=== PATIENT | female | born 1950 | race Caucasian/White ===

== ENCOUNTER 2016-09-27 20:00 | Emergency (ER) | payer OTHER ==
[2016-09-27 20:12] VITALS: RESP 18; TEMP 98.6
--- NOTE | 2016-09-27 20:21 | CPEKG ---
Heart Rate: 108 RR Interval: 556 P-R Interval: 168 QRSD Interval: 78 QT Interval: 336 QTC Interval: 451 P [place]: 51 QRS [place]: 43 T Wave [place]: 18 EKG Severity - ABNORMAL ECG - EKG Impression: SINUS TACHYCARDIA EKG Impression: PROBABLE POSTERIOR INFARCT Electronically Signed By: Scott Rodriguez 27-Sep-2016 20:51:48
--- NOTE | 2016-09-27 20:24 | EDPHY ---
H & P Stated Complaint: palpitations - Personal History Current Tetanus/Diphtheria Vaccine: Unsure Current Tetanus Diphtheria and Acellular Pertussis (TDAP): Unsure - Medical/Surgical History Hx Asthma: No Hx Chronic Respiratory Disease: No Hx Diabetes: No Hx Cardiac Disease: Yes Hx Renal Disease: No Hx Cirrhosis: No Hx Alcoholism: No Hx HIV/AIDS: No Hx Splenectomy or Spleen Trauma: No Other PMH: bicuspid aortic valve, aortic stenosis, migraines, - Social History Smoking Status: Never smoked <Scott Rodriguez - Last Filed: 09/27/16 21:09> Source: Patient Exam Limitations: No limitations <Anant Messer - Last Filed: 09/27/16 22:38> Time Seen by Provider: 09/27/16 20:23 Constitutional: Initial Vital Signs Temperature (C) 37 C 09/27/16 20:08 Heart Rate 114 H 09/27/16 20:08 Respiratory Rate 18 09/27/16 20:08 Blood Pressure 142/90 H 09/27/16 20:08 O2 Sat (%) 97 09/27/16 20:08 O2 Delivery Mode Room Air Allergies/Adverse Reactions: No Known Allergies Allergy (Unverified 09/27/16 20:06) Home Medications: Medication Instructions Recorded Aspirin EC [Aspirin EC 81 mg (*)] 81 mg PO DAILY 09/27/16 Estradiol [Estring] 1 each VG Q90D 09/27/16 Herbals/Supplements -Info Only 1 ea PO DAILY 09/27/16 Ibuprofen [Motrin (*)] 600 mg PO DAILY PRN 09/27/16 LISINOPRIL [LISINOPRIL] 2.5 mg PO HS 09/27/16 Naratriptan HCl [Naratriptan HCl] 1 mg PO DAILY PRN 09/27/16 Nortriptyline HCl [Nortriptyline 50 mg PO HS 09/27/16 HCl] Zolpidem Tartrate [Zolpidem 2.5 mg PO HS 09/27/16 Tartrate] valACYclovir [Valtrex (*)] 1,000 mg PO BID PRN 09/27/16 Medical Decision Making - Diagnostics Imaging: I viewed and interpreted images myself (normal) <Scott Rodriguez - Last Filed: 09/27/16 21:09> <Anant Messer - Last Filed: 09/27/16 22:38> - Diagnostics Imaging Results: Imaging Impressions Chest X-Ray 09/27/16 20:35 Impression: Chest negative for acute cardiopulmonary abnormality.. ED Course/Re-evaluation: CHIEF COMPLAINT: Heart palpitations HISTORY OF PRESENT ILLNESS: This patient is a 66 year old female who presents to the Emergency Department complaining of an acute 30-minute episode of heart palpitations with associated lightheadedness approximately one hour prior to arrival while resting outside. She reports two prior episodes of palpitations lasting for 1-2 minutes over the past few days as well as a remote history of intermittent palpitations, though she states that today's episode was far more intense. Today, she measured her heart rate using a pulse oximeter at home and states that she was tachycardic up to 180 at the time of the palpitations. She also reports an episode of chest pain this morning. She states that she awoke this morning the sensation of what felt like muscular discomfort to her left chest radiating to her left arm. She denies history of similar chest discomfort. No diaphoresis, nausea, or associated fatigue at that time. Upon arrival, she states that her palpitations have resolved. Denies dyspnea, chest pain, nausea, fatigue, weakness, or lightheadedness. She has a history of aortic stenosis and aortic aneurysm and is followed by Dr. Flaca Elizabeth, cardiology. REVIEW OF SYSTEMS: A 10 point review of systems was performed and is negative with the exception of the elements mentioned in the history of present illness. PHYSICAL EXAM: HR 114, BP 140/90, O2 Sat 97%, RR 18. Temp noted at 37C. General Appearance: Alert, well hydrated, appropriate, and non-toxic appearing. Head: Atraumatic without scalp tenderness or obvious injury Eyes: Pupils equal, round, reactive to light and accommodation, EOMI, no trauma , no injection. Ears: Clear bilaterally, no perforation, normal landmarks Nose: Atraumatic, no rhinorrhea, clear. Throat: There is no erythema or exudates, no lesions, normal tonsils, mucus membranes moist. Neck: Supple, 2+ carotid upstroke, nontender, no lymphadenopathy. Respiratory: No retractions, no distress, no wheezes, and no accessory muscle use. Lungs are clear to auscultation bilaterally. Cardiovascular: Regular rate and rhythm, no murmurs, rubs, or gallops. Bilateral carotid, radial, dorsalis pedis, and posterior tibial pulses intact. Good capillary refill all extremities. Gastrointestinal: Abdomen is soft, nontender, non-distended, no masses, no rebound, no guarding, no peritoneal signs. Musculoskeletal: Normal active ROM of all extremities, atraumatic. Neurological: Alert, appropriate, and interactive. The patient has normal DTRs and non-focal cranial nerves, motor, sensory, and cerebellar exam. Skin: No rashes, good turgor, no nodules on palpation. Past medical history: Aortic aneurysm, aortic stenosis, thalassemia minor. Past surgical history: Denies Family history: Non-contributory Social history: at bedside DIAGNOSTICS/PROCEDURES/CRITICAL CARE TIME: EKG INTERPRETATION: The 12 lead EKG was interpreted by myself: Sinus tachycardia, rate 108; lateral ST depressions in V4 and V5. See hard copy and/or "tracemaster" electronic copy for interpretation. No prior EKGs are available for comparison. DIFFERENTIAL DIAGNOSIS: The differential diagnosis for the patient's chest pain included but was not limited to myocardial ischemia, pulmonary embolus, chest wall pain, pleural inflammation, and pulmonary infectious causes. MEDICAL DECISION MAKING: This 66-year-old female presents following episodic heart palpitations, most significant tonight, and one episode of chest pain with left arm radiation this morning. At time of arrival, she states that her complaints have subsided. She is tachycardic at triage at 114. No additional acute findings on exam. Will proceed with EKG, chest x-ray, and labs, including troponin. She will be admitted regardless of results given her age and history. I discussed this plan with the patient who accepts this treatment plan. 324mg PO Aspirin administered. Chest x-ray reviewed by myself and is normal. 2109: Consultation with Dr. Krissy Troy, hospitalist, who accepts admission. (Scott Rodriguez) Differential Diagnosis: Differential diagnosis considered includes acute coronary syndrome, arrhythmia, congestive heart failure, metabolic abnormality, SVT, atrial fibrillation ( Anant Messer) Other Provider: The patient was turned over to me at shift change by Dr. Scott Rodriguez at 9:00 p.m. with a plan that she would be admitted to the hospital. I was informed by nursing staff the patient did not want to be admitted to the hospital and that she had not had a conversation regarding this disposition with the previous provider. I re-evaluated the patient and reviewed her workup in the ED. She presents to the ED after an episode of tachycardia or earlier today which resolved. The patient is noted to have some nonspecific ST segment depression on her EKG. The patient's initial troponin is normal. The patient does understand that we have not fully exclude acute coronary syndrome. She has been told the association between her EKG changes in the possibility of underlying heart disease. The patient would very much like to be discharged home and follow up with her blackjack dealer tomorrow morning. The patient does understand that she can return to the emergency department at any time should she reconsider her decision to leave against our advice. The patient is demonstrated that she is currently a competent decision maker. She is able to articulate the risks and benefits of declining admission to the hospital. ( Anant Messer) - Data Points Laboratory Results: Laboratory Results 09/27/16 20:30 09/27/16 20:30 09/27/16 09/27/16 20:30 20:30 WBC 6.42 10^3/uL 10^3/uL (3.80-9.50) RBC 5.49 10^6/uL H 10^6/uL (4.18-5.33) Hgb 10.8 g/dL L g/dL (12.6-16.3) Hct 34.5 % L % (38.0-47.0) MCV 62.8 fL L fL (81.5-99.8) MCH 19.7 pg L pg (27.9-34.1) MCHC 31.3 g/dL L g/dL (32.4-36.7) RDW 17.1 % H % (11.5-15.2) Plt Count 255 10^3/uL 10^3/uL (150-400) MPV 8.7 fL fL (8.7-11.7) Neut % (Auto) 69.5 % % (39.3-74.2) Lymph % (Auto) 23.2 % % (15.0-45.0) Dickey % (Auto) 5.0 % % (4.5-13.0) Eos % (Auto) 1.4 % % (0.6-7.6) Baso % (Auto) 0.3 % % (0.3-1.7) Nucleat RBC Rel Count 0.0 % % (0.0-0.2) Absolute Neuts (auto) 4.46 10^3/uL 10^3/uL (1.70-6.50) Absolute Lymphs (auto) 1.49 10^3/uL 10^3/uL (1.00-3.00) Absolute Monos (auto) 0.32 10^3/uL 10^3/uL (0.30-0.80) Absolute Eos (auto) 0.09 10^3/uL 10^3/uL (0.03-0.40) Absolute Basos (auto) 0.02 10^3/uL 10^3/uL (0.02-0.10) Absolute Nucleated RBC 0.00 10^3/uL 10^3/uL (0-0.01) Immature Gran % 0.6 % % (0.0-1.1) Immature Gran # 0.04 10^3/uL 10^3/uL (0.00-0.10) Platelet Estimate ADEQUATE (ADEQ) Polychromasia 1+ H Hypochromasia 2+ H Basophilic Stippling 1+ H Microcytic Cells 3+ H Tear Drop Cells 2+ H Elliptocytes 1+ H Schistocytes 1+ H Smear Review By Pending Sodium 141 mEq/L mEq/L (134-144) Potassium 3.9 mEq/L mEq/L (3.5-5.2) Chloride 104 mEq/L mEq/L (97-110) Carbon Dioxide 25 mEq/l mEq/l (22-31) Anion Gap 12 mEq/L mEq/L (8-16) BUN 12 mg/dL mg/dL (7-23) Creatinine 0.7 mg/dL mg/dL (0.6-1.0) Estimated GFR > 60 Glucose 98 mg/dL mg/dL (70-100) Calcium 9.7 mg/dL mg/dL (8.5-10.4) Magnesium 2.2 mg/dL mg/dL (1.6-2.3) Troponin I 0.017 ng/mL ng/mL (0-0.034) NT-Pro-B Natriuret Pep 220 pg/mL H pg/mL (0-125) TSH 0.277 uIU/mL L uIU/mL (0.465-4.680) Medications Given: Discontinued Medications Aspirin (Aspirin) 324 mg PO EDNOW ONE Stop: 09/27/16 20:36 Last Admin: 09/27/16 20:41 Dose: 324 mg Departure <JenniferScott Ballard - Last Filed: 09/27/16 21:09> <Messer,Anant Umberto - Last Filed: 09/27/16 22:38> - Departure Disposition: Home, Routine, Self-Care Clinical Impression: Palpitations Chest pain Qualifiers: Chest pain type: unspecified Qualified Code(s): R07.9 - Chest pain, unspecified Condition: Fair Instructions: Palpitations (ED) Additional Instructions: 1. We have offered you admission to the hospital for observation and further testing this evening in you have decline. Please be aware that we have not fully exclude the presence of possible underlying heart disease as a cause of your symptoms today. Please return to the ED immediately for any recurrent symptoms of palpitations, chest pain, difficulty breathing or other concerns. 2. Please follow up tomorrow with your blackjack dealer Dr. Elizabeth for further evaluation. Referrals: Katt Nieto MD [Primary Care Provider] - As per Instructions Flaca Elizabeth MD [Medical Doctor] - As per Instructions
[2016-09-27] MEDS ORDERED: ASPIRIN 81 MG CHEWABLE TAB PO ONE (20:35)
[2016-09-27] MEDS ORDERED: ASPIRIN 81 MG CHEWABLE TAB ONE (20:36)
[2016-09-27 20:42] LABS: % IMMATURE GRANULYOCYTES 0.6 % (0.0-1.1); ABSOLUTE IMMATURE GRANULOCYTES 0.04 10^3/uL (0.00-0.10); ADD DIFF? NO; ADD MORPH? YES; ADD SCAN? NO; ATYPICAL LYMPHOCYTE FLAG 0 (0-99); FRAGMENT RBC FLAG 40 (0-99); HEMATOCRIT 34.5 % (38.0-47.0); HEMOGLOBIN 10.8 g/dL (12.6-16.3); LEFT SHIFT FLG 0 (0-99); LIPEMIA HEMOLYSIS FLAG 80 (0-99); MEAN CELL HEMOGLOBIN 19.7 pg (27.9-34.1); MEAN CELL HEMOGLOBIN CONCENTR. 31.3 g/dL (32.4-36.7); MEAN PLATELET VOLUME 8.7 fL (8.7-11.7); PLATELET CLUMPS FLAG 10 (0-99); PLATELET COUNT 255 10^3/uL (150-400); RED BLOOD CELL COUNT 5.49 10^6/uL (4.18-5.33); RED CELL DISTRIBUTION WIDTH 17.1 % (11.5-15.2)
[2016-09-27 20:45] LABS: MEAN CELL VOLUME 62.8 fL (81.5-99.8)
[2016-09-27 20:58] LABS: ANION GAP 12 mEq/L (8-16); CALCIUM 9.7 mg/dL (8.5-10.4); CARBON DIOXIDE 25 mEq/l (22-31); CHLORIDE 104 mEq/L (97-110); CREATININE 0.7 mg/dL (0.6-1.0); GLOMERULAR FILTRATION RATE > 60; GLUCOSE 98 mg/dL (70-100); MAGNESIUM 2.2 mg/dL (1.6-2.3); POTASSIUM 3.9 mEq/L (3.5-5.2); SODIUM 141 mEq/L (134-144)
[2016-09-27 21:10] LABS: TROPONIN I 0.017 ng/mL (0-0.034)
[2016-09-27 21:12] LABS: ELLIPTOCYTES 1+; HYPOCHROMIA 2+; MICROCYTES 3+; PLATELET ESTIMATE ADEQUATE (ADEQ); POLYCHROMASIA 1+; SCHISTOCYTES 1+
[2016-09-27 23:02] VITALS: BP 130/95; PULSE 97; O2SAT 95
== END 2016-09-27 23:04 | disposition home or self-care (01) ==
LOC: UNDOADMOB 21:09
DX: R00.2 Palpitations (principal); R07.9 Chest pain, unspecified; Z79.82 Long term (current) use of aspirin

== ENCOUNTER → 2018-01-08 | Outpatient (CLI) | payer OTHER | LOC: FIMAGING 10:43 | PROVIDERS: ATTEND Internal Medicine | DX: Z12.31 Encounter for screening mammogram for malignant neoplasm of breast (principal) ==

== ENCOUNTER 2018-04-15 07:56 | Day surgery (SDC) | payer OTHER ==
[2018-04-15] MEDS ORDERED: DIAZEPAM 5 MG TAB PO ONE (07:58)
[2018-04-15] MEDS ORDERED: NS 1,000 ML IV ONE (07:58)
[2018-04-15] MEDS ORDERED: ASPIRIN EC 325 MG TAB PO ONE ×2 (07:58→08:09)
[2018-04-15] MEDS ORDERED: FAMOTIDINE 20 MG TAB PO ONE (07:58)
[2018-04-15] MEDS ORDERED: diphenhydrAMINE 25 MG CAP PO ONE ×2 (07:58→08:09)
[2018-04-15] MEDS ORDERED: DIAZEPAM 5 MG TAB ONE (08:09)
[2018-04-15] MEDS ORDERED: FAMOTIDINE 20 MG TAB ONE (08:09)
[2018-04-15] MEDS ORDERED: LIDOCAINE 1% 300 MG/30 ML SDV ONE (08:38)
[2018-04-15] MEDS ORDERED: MIDAZOLAM 2 MG/2 ML VIAL ONE ×2 (08:39→09:51)
[2018-04-15] MEDS ORDERED: IOPAMIDOL (ISOVUE-370) 150 ML BTL IV ONE (08:39)
[2018-04-15] MEDS ORDERED: fentaNYL 100 MCG/2 ML INJ ONE (08:39)
[2018-04-15 08:44] LABS: INR 1.05 (0.83-1.16); PROTIME(PATIENT) 13.9 SEC (12.0-15.0)
--- NOTE | 2018-04-15 09:00 | PDPROPOC ---
Sedation Plan of Care Sedation Plan of Care: vital signs stable, mental status noted, patient educated of risks, benefits, alternatives, patient can tolerate sedation Planned drugs: fentanyl, midazolam Mallampati Score: Class 2 Mallampati Reference Image: Patient passed 3-3-2 rule?: Yes
--- NOTE | 2018-04-15 09:00 | PDHPUP ---
History & Physical Update H&P update statement: This history and physical update is based on an assessment of the patient which was completed after admission or registration (within 24 hours), but prior to the surgery/procedure. H&P update: H&P reviewed & patient examined, no change in patient's condition since H&P completed
[2018-04-15 09:15] LABS: PLATELET COUNT 235 10^3/uL (150-400)
[2018-04-15] MEDS ORDERED: NITROGLYCERIN 0.4 MG BTL SL PRN (10:01)
[2018-04-15] MEDS ORDERED: ATROPINE SULFATE 1 MG/10 ML SYR IVP PRN (10:01)
[2018-04-15] MEDS ORDERED: HYDROCODONE/APAP 5/325 TAB PO PRN (10:01)
[2018-04-15] MEDS ORDERED: OXYCODONE/APAP 5/325 TAB PO PRN (10:01)
[2018-04-15] MEDS ORDERED: ONDANSETRON 4 MG/2 ML VIAL IVP PRN (10:01)
--- NOTE | 2018-04-15 10:01 | PDDXCAT ---
Diagnostic Cath Note - . Date: 04/15/18 Opthalmic Tech: Clara Indication: other (pre AVR) - Procedure Access: right groin Procedure: left heart catheterization, coronary angiography - Materials Left Heart Cath size: 6F Left Heart Cath materials: JL4.0, Francis's R - Findings-Left Heart Catheterization LM: long. Bifurcates into LAD and LCx. No CAD LAD: Reaches the apex. 3 small diagonals and one medium diagonal. No CAD LCX: No CAD. Single OM RCA: Dominant. Normal - Findings-Right Heart Catheterization AO: 122/69 Complications: none Estimated blood loss: <50ml Closure method: Angioseal Assessment: Normal coronary arteries. Aortic valve not crossed due to known severe Plan: Surgical AVR
--- NOTE | 2018-04-16 06:09 | CPEKG ---
Test Reason : OPEN Blood Pressure : / mmHG Vent. Rate : 058 BPM Atrial Rate : 058 BPM P-R Int : 138 ms QRS Dur : 083 ms QT Int : 435 ms P-R-T Axes : 043 050 016 degrees QTc Int : 428 ms Sinus rhythm Borderline ST depression inferolateral leads Confirmed by Malachi Goddard ([id number]) on 04/16/2018 6:08:42 AM Referred By: Confirmed By:Malachi Goddard
== END 2018-04-15 13:33 | disposition home or self-care (01) ==
LOC: FCATH 07:56
PROVIDERS: ATTEND Internal Medicine Cardiovascular Disease
DX: Z01.810 Encounter for preprocedural cardiovascular examination (principal); Q23.1 Congenital insufficiency of aortic valve; I08.0 Rheumatic disorders of both mitral and aortic valves; I71.2 Thoracic aortic aneurysm, without rupture; I47.1 Supraventricular tachycardia; R91.1 Solitary pulmonary nodule; G43.909 Migraine, unspecified, not intractable, without status migrainosus; D17.71 Benign lipomatous neoplasm of kidney; F32.9 Major depressive disorder, single episode, unspecified; Z86.010 Personal history of colon polyps; Z87.891 Personal history of nicotine dependence; Z88.0 Allergy status to penicillin
CPT/HCPCS: C1760; J1644; J2250; J3010; Q9967

== ENCOUNTER 2018-05-02 05:45 | Inpatient (IN) | payer OTHER ==
--- NOTE | 2018-05-01 15:07 | PDGENHP ---
History and Physical - Chief Complaint bicuspid aortic valve, , enlarged aorta - History of Present Illness 67 yo petite female with a BAV, 4.4 cm ascending aorta, and progressive associated with atypical chest pains and episodic near syncopal lightheadedness evaluated for AVR. Degree of ascending aortic dilatation deemed significant relative to her body size (cross sectional area to height 10cm/m2) and pre- emptive ascending aortic replacement recommended as well. No CAD or LVSD. No wt changes, orthopnea, or edema. Hx PSVT controlled on low dose Bystolic. Ablative surgery deferred as no documented AF. No personal hx HTN. Father at age 46 from sudden ; one niece known to have a BAV. Drinks a glass of wine w dinner most days of the week. History Information - Allergies/Home Medication List Allergies/Adverse Reactions: No Known Allergies Allergy (Verified 04/29/18 10:44) Home Medications: Aspirin EC [Aspirin EC 81 mg (*)] 81 mg PO DAILY 09/27/16 [Last Taken 04/29/18] Estradiol [Estring] 1 each VG Q90D 09/27/16 [Last Taken Unknown] Herbals/Supplements -Info Only 1 ea PO DAILY 09/27/16 [Last Taken 04/29/18] Ibuprofen [Motrin (*)] 600 mg PO DAILY PRN 09/27/16 [Last Taken 04/29/18] Naratriptan HCl [Naratriptan HCl] 1 mg PO DAILY PRN 09/27/16 [Last Taken ] valACYclovir [Valtrex (*)] 2,000 mg PO BID PRN 09/27/16 [Last Taken 03/29/18] Acetaminophen [Tylenol ES 500 mg (*)] 1,000 mg PO DAILY PRN 04/08/18 [Last Taken Unknown] Amoxicillin Trihydrate [Amoxicillin] 2,000 mg PO AD 04/08/18 [Last Taken ] Calcium Carbonate [Oyster Shell Calcium 500 mg (*)] 500 mg PO DAILY 04/08/18 [ Last Taken 04/29/18] Cholecalciferol Vit D3 [Vitamin D3 2000 units tab (OTC)] 2,000 units PO DAILY [Last Taken 04/29/18] Cyanocobalamin [Vitamin B12 (*)] 5,000 mcg PO DAILY 04/08/18 [Last Taken ] Magnesium Oxide [Magnesium Oxide 400 mg (*)] 400 mg PO BID 04/08/18 [Last Taken 04/29/18] Nebivolol HCl [Bystolic] 1.25 mg PO DAILY 04/08/18 [Last Taken Unknown] Pantoprazole Sodium [Protonix 40mg (*)] 40 mg PO MWF 04/08/18 [Last Taken Unknown] Psyllium Husk (with Sugar) [Metamucil Packet] 1 each PO DAILY PRN 04/08/18 [ Last Taken Unknown] Vitamin B Complex [Vitamin B Complex (OTC)] 1 each PO DAILY 04/08/18 [Last Taken 04/29/18] Zolpidem Tartrate [Ambien 5MG (*)] 2.5 - 5 mg PO HS 04/08/18 [Last Taken Unknown ] I have personally reviewed and updated: family history, medical history, social history, surgical history - Past Medical History migraines (with aura), SVT (paroxysmal; intolerant to digoxin, diltiazem, and higher doses of Bystolic) Additional medical history: chronic anemia - thalassemia. anxiety with depression. insomnia. esophageal dysphagia. herpes simplex. menopause. incidental subcentimeter pulm nodules, f/u CT planned end of 2018 - Surgical History Reports: appendectomy Additional surgical history: foot surgery - Social History Smoking Status: Never smoked Alcohol Use: Other (regularly) Review of Systems Review of Systems: ROS: 10pt was reviewed & negative except for what was stated in HPI & below Physical Exam Physical Exam: Constitutional: no apparent distress, appears nourished Eyes: other (PER) Ears, Nose, Mouth, Throat: moist mucous membranes, hearing normal Cardiovascular: regular rate and rhythym, systolic murmur, other (no visible edema) Respiratory: no respiratory distress Gastrointestinal: soft, non-tender abdomen Skin: warm, normal color Musculoskeletal: other (symmetric tone) Psychiatric: interacting appropriately, anxious Lab Data & Imaging Review 05/02/18 06:50 Patient ABO/Rh A POSITIVE 04/29/18 09:10 Antibody Screen NEGATIVE 04/29/18 09:10 HgbA1c 5% Na 140, K 3.8, BUN 14, Cr 0.7, glc 78 CBC clotted and to be redrawn Imaging Review: 10/26/16 Cardionet: NSR with one 13 beat run of SVT 03/05/18 TTE: Nl BiV cavity size and systolic fx, LVEF 65%, no LVH, no LVDD, BAV , severe by SUZANNA 0.7, mild AI, nl sized atria, mildly thickened mitral leaflets w mild MR, mild to mod TR, RVSP 41. 03/20/18 CT chest: Max ascending aortic dilatation at level of PA, no arch or arch vessel involvement. Incidental subcentimeter pulm nodules, LLL and RUL 04/15/18 LHC: rt dominant henry system, no angiographic evidence of disease Assessment & Plan Assessment: BAV w symptomatic severe and mild AI Ascending aorta dilation Preserved LVEF Chronic anemia Plan: Tissue AVR Ascending aortic replacement with dacron interposition graft PRBC request if H/H < Consents per Dr Gtz
[2018-05-02] MEDS ORDERED: AMINOCAPROIC ACID 5 GM/20 ML VIAL IV ONE (06:00)
[2018-05-02] MEDS ORDERED: MANNITOL 25% 12.5 GM/50 ML VIAL IVP ONE (06:00)
[2018-05-02] MEDS ORDERED: INSULIN REGULAR HUMAN 100 UNIT in NS 100 ML IV ONE (06:00)
[2018-05-02] MEDS ORDERED: CARDIOPLEGIC SOLUTION 1,052.8 ML PF ONE (06:00)
[2018-05-02] MEDS ORDERED: PHENYLEPHRINE HCL 50 MG in NS 250 ML IV ONE (06:00)
[2018-05-02] MEDS ORDERED: CITRATE DEXTROSE SOLN 500 ML BAG MISC ONE (06:03)
[2018-05-02] MEDS ORDERED: ceFAZolin 2 GM/DEXTROSE 100 ML IV ONE (06:03)
[2018-05-02] MEDS ORDERED: LIDOCAINE 1% 2 ML INJ ID PRN (06:03)
[2018-05-02] MEDS ORDERED: LR 1,000 ML IV ONE (06:04)
[2018-05-02] MEDS ORDERED: CALCIUM CHLORIDE 1 GM/10 ML INJ ONE ×2 (06:33→06:35)
[2018-05-02] MEDS ORDERED: PROTAMINE SULFATE 50 MG/5 ML VIAL IVP ONE (06:33)
[2018-05-02] MEDS ORDERED: HEPARIN 10,000 UNIT/10 ML MDV (1,000 UNIT/ML) ONE ×2 (06:34→06:36)
[2018-05-02] MEDS ORDERED: NA BICARBONATE 50 MEQ/50 ML VIAL ONE (06:34)
[2018-05-02] MEDS ORDERED: AMINOCAPROIC ACID 5 GM/20 ML VIAL ONE ×2 (06:34→06:35)
[2018-05-02] MEDS ORDERED: niCARdipine/NACL/200 ML BAG IV ONE (06:34)
[2018-05-02] MEDS ORDERED: AMIODARONE HCL 150 MG/3 ML VIAL ONE ×2 (06:34→06:36)
[2018-05-02] MEDS ORDERED: DOPamine/DEXTROSE 400 MG/250 ML BAG IV ONE (06:34)
[2018-05-02] MEDS ORDERED: ADENOSINE 6 MG/2 ML VIAL ONE (06:34)
[2018-05-02] MEDS ORDERED: MILRINONE/DEXTROSE/100 ML BAG IV ONE (06:34)
[2018-05-02] MEDS ORDERED: NITROGLYCERIN/D5W 50 MG/250 ML BOTTLE IV ONE (06:35)
[2018-05-02] MEDS ORDERED: ALBUMIN 5% 250 ML BOTTLE IV ONE ×2 (06:35→10:35)
[2018-05-02] MEDS ORDERED: ceFAZolin 1 GM VIAL ONE (06:35)
[2018-05-02] MEDS ORDERED: SODIUM BICARBONATE 50 MEQ/50 ML SYR ONE (06:35)
[2018-05-02] MEDS ORDERED: MAGNESIUM SULFATE 1 GM/2 ML VIAL ONE (06:36)
[2018-05-02] MEDS ORDERED: CITRATE DEXTROSE SOLN 500 ML BAG ONE (06:36)
[2018-05-02] MEDS ORDERED: methylPREDNISolone SOD SUCC 1 GM/8 ML VIAL ONE (06:36)
[2018-05-02] MEDS ORDERED: LIDOCAINE 2% 100 MG/5 ML SYR ONE ×2 (06:36→07:20)
[2018-05-02] MEDS: MUPIROCIN 2% 22 GM OINT NS SCH ×3 (06:50→21:08)
[2018-05-02] MEDS ORDERED: MIDAZOLAM 2 MG/2 ML VIAL IVP ONE (06:52)
--- NOTE | 2018-05-02 07:03 | PDANEPAE ---
ANE History of Present Illness critical s/f AVR and ascending Ao repair/replace ANE Past Medical History - Cardiovascular History Hx Hypertension: No Hx Arrhythmias: No Hx Chest Pain: No Hx Coronary Artery / Peripheral Vascular Disease: Yes Hx CHF / Valvular Disease: Yes Hx Palpitations: No Cardiovascular History Comment: bicupsid aortic valve. aortic valve stenosis. ascending aortic aneurysm. paroxysmal svt. cath 04.15.18. followed by [facility] - Pulmonary History Hx COPD: No Hx Asthma/Reactive Airway Disease: No Hx Recent Upper Respiratory Infection: No Hx Oxygen in Use at Home: No Hx Sleep Apnea: No Sleep Apnea Screening Result - Last Documented: Negative Pulmonary History Comment: hx of pulm nodule - Neurologic History Hx Cerebrovascular Accident: No Hx Seizures: No Hx Dementia: No Neurologic History Comment: migraines with aura's. lower back pain - Endocrine History Hx Diabetes: No - Renal History Hx Renal Disorders: No - Liver History Hx Hepatic Disorders: No - Neurological & Psychiatric Hx Hx Neurological and Psychiatric Disorders: Yes Neurological / Psychiatric History Comment: hx of depression. anxiety r/t surgery - Cancer History Hx Cancer: No - Congenital Disorder History Hx Congenital Disorders: No - GI History Hx Gastrointestinal Disorders: Yes Gastrointestinal History Comment: reflux. constipation. hx of colonoscopies - Other Health History Other Health History: thallasemia minor. wears glasses. dental work a couple weeks ago. "thin skin" - Chronic Pain History Chronic Pain: Yes (migraines, lower back pain) - Surgical History Prior Surgeries: 04.15.18 heart cath with Ware. garcia. foot surgeries- bilaterally. colonoscopy. wisdom teeth removal ANE Review of Systems Review of Systems: - Exercise capacity METS (RN): 4 METS ANE Patient History - Allergies Allergies/Adverse Reactions: No Known Allergies Allergy (Verified 04/29/18 10:44) - Home Medications Home medications: home medication list seen and reviewed Home Medications: Aspirin EC [Aspirin EC 81 mg (*)] 81 mg PO DAILY 09/27/16 [Last Taken 04/29/18] Estradiol [Estring] 1 each VG Q90D 09/27/16 [Last Taken Unknown] Herbals/Supplements -Info Only 1 ea PO DAILY 09/27/16 [Last Taken 04/29/18] Ibuprofen [Motrin (*)] 600 mg PO DAILY PRN 09/27/16 [Last Taken 04/29/18] Naratriptan HCl [Naratriptan HCl] 1 mg PO DAILY PRN 09/27/16 [Last Taken ] valACYclovir [Valtrex (*)] 2,000 mg PO BID PRN 09/27/16 [Last Taken 03/29/18] Acetaminophen [Tylenol ES 500 mg (*)] 1,000 mg PO DAILY PRN 04/08/18 [Last Taken Unknown] Amoxicillin Trihydrate [Amoxicillin] 2,000 mg PO AD 04/08/18 [Last Taken ] Calcium Carbonate [Oyster Shell Calcium 500 mg (*)] 500 mg PO DAILY 04/08/18 [ Last Taken 04/29/18] Cholecalciferol Vit D3 [Vitamin D3 2000 units tab (OTC)] 2,000 units PO DAILY [Last Taken 04/29/18] Cyanocobalamin [Vitamin B12 (*)] 5,000 mcg PO DAILY 04/08/18 [Last Taken ] Magnesium Oxide [Magnesium Oxide 400 mg (*)] 400 mg PO BID 04/08/18 [Last Taken 04/29/18] Nebivolol HCl [Bystolic] 1.25 mg PO DAILY 04/08/18 [Last Taken Unknown] Pantoprazole Sodium [Protonix 40mg (*)] 40 mg PO MWF 04/08/18 [Last Taken Unknown] Psyllium Husk (with Sugar) [Metamucil Packet] 1 each PO DAILY PRN 04/08/18 [ Last Taken Unknown] Vitamin B Complex [Vitamin B Complex (OTC)] 1 each PO DAILY 04/08/18 [Last Taken 04/29/18] Zolpidem Tartrate [Ambien 5MG (*)] 2.5 - 5 mg PO HS 04/08/18 [Last Taken Unknown ] - NPO status NPO Status: no food or drink >8 hours NPO Since - Liquids (Date): 05/01/18 NPO Since - Liquids (Time): 22:00 NPO Since - Solids (Date): 05/01/18 NPO Since - Solids (Time): 20:45 - Anes Hx Anes Hx: no prior problems - Smoking Hx Smoking Status: Never smoked - Alcohol Use Alcohol Use: Other (regularly) - Family Anes Hx Family Anes Hx: none Family Hx Anesthesia Complications: none ANE Labs/Vital Signs - Labs Result Diagrams: 05/02/18 06:50 - Vital Signs Blood Pressure: 118/83 Heart Rate: 67 Respiratory Rate: 16 O2 Sat (%): 99 Height: 152 cm Weight: 48.1 kg ANE Physical Exam - Airway Neck exam: FROM Mallampati Score: Class 2 Mouth exam: normal dental/mouth exam - Pulmonary Pulmonary: no respiratory distress - Cardiovascular Cardiovascular: regular rate and rhythym - ASA Status ASA Status: III ANE Anesthesia Plan Anesthesia Plan: general endotracheal anesthesia Lines/Monitors: arterial line, central line (QL CVP and cordis/PA catheter), ELA
[2018-05-02] MEDS ORDERED: REMIFENTANIL HCL 1 MG VIAL ONE (07:19)
[2018-05-02] MEDS ORDERED: fentaNYL 250 MCG/5 ML INJ ONE (07:19)
[2018-05-02] MEDS ORDERED: ONDANSETRON 4 MG/2 ML VIAL ONE (07:19)
[2018-05-02] MEDS ORDERED: MIDAZOLAM 2 MG/2 ML VIAL ONE (07:19)
[2018-05-02] MEDS ORDERED: PROPOFOL/EMULSION 500 MG/50 ML BOTTLE IV ONE (07:19)
[2018-05-02] MEDS ORDERED: ROCURONIUM 100 MG/10 ML VIAL ONE (07:19)
[2018-05-02] MEDS ORDERED: DEXAMETHASONE 4 MG/ML VIAL ONE ×2 (07:19)
[2018-05-02] MEDS ORDERED: PHENYLEPHRINE HCL 100 MCG/ML SYR ONE (07:20)
[2018-05-02] MEDS ORDERED: LIDOCAINE HCL 160 MG/4 ML LTA KIT TP ONE (07:20)
[2018-05-02] MEDS ORDERED: ePHEDrine SULFATE 25 MG/5 ML SYR ONE (07:20)
[2018-05-02] MEDS ORDERED: DEXMEDETOMIDINE HCL 400 MCG in NS 100 ML IV SCH (07:30)
--- NOTE | 2018-05-02 11:23 | POSTOPPROG ---
Post Op Note Date of Operation: 05/02/18 Surgeon: Roe Gtz Assistant: Neda Alarcon PA-C Anesthesiologist: Rob Anesthesia: GET(General Endotracheal) Pre-op Diagnosis: BAV w severe and aneurysmal ascending aorta Post-op Diagnosis: same Procedure: AVR #23 Inspiris Resilia bioprosthesis, asc ao resection, endoloop lig NGHIA Inf/Abcess present in the surg proc area at time of surgery?: No EBL: n/a Drains: Other ([address], 24 Fr post mediastinal Julian)
[2018-05-02] MEDS ORDERED: ONDANSETRON DISINTEGRATING 4 MG TAB PO PRN (11:25)
[2018-05-02] MEDS ORDERED: METOCLOPRAMIDE 10 MG/2 ML VIAL IVP PRN (11:25)
[2018-05-02] MEDS ORDERED: LACTULOSE 20 GM/30 ML UDCUP PO PRN (11:25)
[2018-05-02] MEDS ORDERED: niCARdipine/NACL 200 ML IV PRN (11:25)
[2018-05-02] MEDS ORDERED: ONDANSETRON 4 MG/2 ML VIAL IVP PRN (11:25)
[2018-05-02] MEDS ORDERED: SODIUM CL NASAL 45 ML BTL EACHNARE PRN (11:25)
[2018-05-02] MEDS ORDERED: POLYETHYLENE GLYCOL 3350 17 GM PKT PO PRN (11:25)
[2018-05-02] MEDS ORDERED: fentaNYL 100 MCG/2 ML INJ IVP PRN (11:25)
[2018-05-02] MEDS ORDERED: PANTOPRAZOLE SODIUM 40 MG VIAL IVP ONE (11:25)
[2018-05-02] MEDS ORDERED: MEPERIDINE 25 MG/0.5 ML AMP IVP PRN (11:25)
[2018-05-02] MEDS ORDERED: D50W 25 GM/50 ML SYR IVP PRN (11:25)
[2018-05-02] MEDS ORDERED: CEPACOL LOZENGE PO PRN (11:25)
[2018-05-02] MEDS ORDERED: MAGNESIUM HYDROXIDE 30 ML UDCUP PO PRN (11:25)
[2018-05-02] MEDS ORDERED: INSULIN REGULAR HUMAN 100 UNIT in NS 100 ML IV SCH (11:30)
[2018-05-02] MEDS ORDERED: NS 1,000 ML IV SCH (11:30)
[2018-05-02] MEDS ORDERED: oxyCODONE IR 5 MG TAB PO PRN (11:34)
--- NOTE | 2018-05-02 12:13 | GOP ---
DATE OF OPERATION: 05/02/2018 SURGEON: Roe Gtz MD REWEAVER: PATTY Whiting PREOPERATIVE DIAGNOSIS: 1. Severe aortic stenosis. 2. Ascending aortic aneurysm. POSTOPERATIVE DIAGNOSIS: 1. Severe aortic stenosis. 2. Ascending aortic aneurysm. PROCEDURE PERFORMED: 1. Aortic valve replacement using a 23 mm Inspiris bioprosthetic valve. 2. Resection and primary repair, ascending aortic aneurysm. 3. Left atrial appendage occlusion. FINDINGS: The pericardial space was free. The aorta was soft and somewhat thin. The aneurysm was a s described above. The valve itself was bicuspid with fusion of the non and right cusps. It was hea vily calcified. INDICATIONS: The patient is a 67-year-old woman with some atypical lightheadedness. She underwent e chocardiography and was found have a bicuspid, severely stenotic aortic valve. Her ascending aorta w as approximately 4.5 cm and when indexed to her small body size, was considered to be significant and an indication for resection. DESCRIPTION OF PROCEDURE: Patient taken to the operating room, placed on operating table in supine p osition. After the induction of general anesthesia and single-lumen endotracheal tube intubation, th e patient was prepped and draped sterilely. A standard median sternotomy was performed and the patie nt was fully heparinized. She was cannulated with a Sarns 8.0 Soft-Flow aortic cannula as well as a dual-stage venous right atrial cannula. Cardiopulmonary bypass was instituted. Left atrial appendag e was occluded. Once the appendage had been snared twice, we then opened the aorta, resected the ane urysm. This was sent for histology. We then inspected the valve; findings are described above. The valve itself was resected. It was sized to a 23 mm Inspiris bioprosthetic valve. Sutures were then placed around the anulus with pledgets on the ventricular side. The valve was seated without diffic ulty. Woven Dacron was then used to reinforce proximally and distally, and the aorta was primarily r eanastomosed end to end using running 3-0 Prolene. Next, the cross-clamp was removed. Atrial and ve ntricular pacing wires were placed. Two mediastinal chest drains were also placed. Once off bypass, the post pump transesophageal echo shows preservation of left ventricular function and a normally fu nctioning bioprosthetic valve in the aortic position. The protamine was administered, and the patien t was decannulated. Atrial and ventricular pacing wires had been placed. Once the cannulation sites had been secured with Prolene suture and hemostasis had been achieved, the chest was then closed wit h #6 stainless steel wires. Subcutaneous tissue and skin were closed with running Vicryl suture. Th e patient tolerated the procedure well. /[id number]/MODL
[2018-05-02] MEDS: ASPIRIN EC 81 MG TAB PO SCH (12:28)
[2018-05-02] MEDS: KETOROLAC 15 MG/1 ML SDV IVP SCH ×3 (12:33→23:29)
[2018-05-02] MEDS: POTASSIUM Cl (KCl) 50 ML IV PRN ×4 (12:40→21:09)
[2018-05-02] MEDS: ALBUMIN 5% 250 ML IV PRN ×2 (12:55→13:35)
[2018-05-02] MEDS: ceFAZolin 2 GM/DEXTROSE 100 ML IV SCH ×2 (14:04→22:23)
--- NOTE | 2018-05-02 17:01 | GCON ---
PULMONARY/CRITICAL CARE CONSULTATION. DATE OF CONSULTATION: 05/02/2018 REFERRING PHYSICIAN: Roe Gtz MD REASON FOR REFERRAL: Evaluation and management of anemia and respiratory failure/vent management. HISTORY: The patient is a 67-year-old woman with a history of a bicuspid aortic valve and dilated as cending aorta, who had progressive aortic stenosis associated with chest pain and near syncopal light headedness. She was seen by Dr. Gtz, who recommended aortic valve replacement/repair. PAST MEDICAL HISTORY: 1. PSVT controlled on low-dose Bystolic. 2. Thalassemia minor. 3. Migraines. 4. Anxiety with depression. 5. Insomnia. 6. Herpes simplex. MEDICATIONS: At time of admission include aspirin, estradiol, ibuprofen, valacyclovir. ALLERGIES: None. SOCIAL HISTORY: The patient has never smoked. Alcohol, the patient drinks alcohol regularly, but no t to excess. FAMILY HISTORY: Positive for bicuspid aortic valve. REVIEW OF SYSTEMS: A 10-point review of systems adds nothing to the history of present illness. PHYSICAL EXAM: VITAL SIGNS: The patient is intubated and sedated. Blood pressure is 108/55 with a h eart rate of 80 with a pacemaker. She is afebrile. Oxygen saturations are 99%. HEENT: Normocephali c and atraumatic. No icterus. NECK: No JVD. Trachea is midline. CHEST: Clear to auscultation. C ARDIAC: Regular rate and rhythm without murmur. ABDOMEN: Soft, nontender. Bowel sounds are present . EXTREMITIES: No clubbing, cyanosis, or edema. LABORATORY: Hemoglobin is 7.8, down from 9.7 preoperatively. Her MCV is low at 62.2, platelet count is 216. A chest x-ray shows mild atelectasis on the left. Images reviewed by me. ASSESSMENT: 1. Status post aortic valve replacement with aortic root repair. The patient had an unremarkable in traoperative course. 2. Anemia. The patient has chronic microcytic anemia due to thalassemia minor. Her hemoglobin is a bit lower due to intraoperative blood loss. 3. Respiratory failure. The patient remains intubated postoperatively, but is stable on the ventila tor and with good oxygen saturations and end-tidal CO2 in the low 40s. RECOMMENDATIONS: 1. Follow hemoglobin. 2. Check glucose level. 3. Hold sedation and wean from ventilator as tolerated. Can extubate once she is able to breathe sp ontaneously. 4. Continue pacemaker until sitka rate increases enough to maintain adequate blood pressure. /[id number]/MODL
[2018-05-02] MEDS: ACETAMINOPHEN 325 MG TAB PO SCH ×2 (18:22→23:29)
[2018-05-03 04:23] LABS: PLATELET COUNT 108 10^3/uL (150-400)
[2018-05-03] MEDS: ceFAZolin 2 GM/DEXTROSE 100 ML IV SCH ×3 (05:11→21:12)
[2018-05-03] MEDS: KETOROLAC 15 MG/1 ML SDV IVP SCH ×4 (05:25→23:15)
[2018-05-03] MEDS: ACETAMINOPHEN 325 MG TAB PO SCH ×4 (05:26→23:14)
[2018-05-03] MEDS ORDERED: DOBUTamine/DEXTROSE 250 ML IV ONE (06:00)
[2018-05-03] MEDS ORDERED: PSYLLIUM METAMUCIL 1 PKT PO PRN (08:00)
--- NOTE | 2018-05-03 08:28 | SOAPPROG ---
SOAP Progress Note Assessment/Plan: POD#1 s/p AVR #23 Inspiris, resection and primary repair of ascending aortic aneurysm, left atrial appendage occlusion Post-op LLE, LUE weakness, likely post-op CVA Severe BAV stenosis with enlarged ascending aorta - No inotropes required post- op. Paced immediately post-op but now in own rhythm NSR 78-95 overnight. Hold antithrombotic therapy (ASA, Coumadin). When/if appropriate, plan for 8 weeks of Coumadin. Likely post-operative CVA - includes LLE, LUE weakness and loss of sensation. No apparent cognitive deficit, aphasia, dysarthrias, or facial droop. Plan to have Neurology involved with CT today. Patient has a history of migraines w aura that have been worse in the ICU. Acute blood loss anemia - 9.7/29.9 just prior to OHS. 10.5/33.8 mid March. Transfuse to keep H/H >10/30. Chronic anemia/thalassemia - acute on chronic, worsened by OHS. No history of blood transfusion per patient. Postoperative respiratory insufficiency -extubated yesterday, continue C&DB, IS. Paroxysmal SVT - start low-dose beta-dameon when appropriate. Subcentimeter pulmonary nodules LLL & RUL. F/u CT end of 2019. Plan: Transfuse 2 pRBCs re: acute on chronic anemia Consult Neurology re: post-op CVA, CT scan ordered Hold anticoagulation, ASA Dc swan, arterial line, diaz Keep chest tubes as o/p too high to pull Wrap & cap wires Subjective: Did not feel SCDs squeezing on LLE last night at shift change. Presumed to have post-op CVA involving LLE, LUE with both motor & sensation deficits. She has been having increasing migraines w aura as well. Objective: Vital Signs Temp Pulse Resp BP Pulse Ox 37.1 C 85 14 130/64 H 99 05/03/18 07:38 05/03/18 07:38 05/03/18 07:38 05/03/18 07:00 05/03/18 07:38 Laboratory Results 05/03/18 04:10 05/03/18 04:10 05/02/18 05/03/18 05/04/18 05:59 05:59 05:59 Intake Total 2222 Output Total 2875 Balance -653 CXR - reviewed, stable General: NAD, sitting upright HEENT: NCAT,CVL IJ, MMM Respiratory: nasal cannula oxygen 2 L, no wheezes, crackles Cardiac: NSR, no m/r/g, no edema GI: soft,nt, nd : diaz Incisions: sternum with dressing Chest tubes: 350 cc overnight, already 170 cc this AM Neurologic: A&Ox3, communication ability within normal limits, voice quality normal, articulation of speech normal, no evidence of aphasia, no facial droop, drifting to left while sitting in chair LLE: loss of sensation on the lateral aspect (per pt), 3/5 strength LUE:3/5 strength, shoulder shrug weaker on left RLE strength 5/5, no sensation deficit RUE: strength 5/5, no sensation deficit [employer]ic: R - strength 5/5, L - strength 3-4/5 ICD10 Worksheet Patient Problems: Problems Problem Status Onset Acute blood loss anemia Acute S/P aortic valve replacement with bioprosthetic valve Acute ~05/02/18 s/p ascending aortic resection Acute ~05/02/18 Aortic stenosis due to bicuspid aortic valve Chronic Ascending aorta dilation Chronic PSVT (paroxysmal supraventricular tachycardia) Chronic
--- NOTE | 2018-05-03 08:50 | PDMN ---
Medical Necessity Medical necessity: MCG: S290 aortic valve replacement or repair 5 days: OP : AVReplacement, resection and primary repair, aaa, L atrial appendage occlusion. ALBERT FOR CPT [id number] DONE IN PT
--- NOTE | 2018-05-03 09:42 | ASMTCMCOM ---
CM Note CM Note Notes: Patient is POD #1 AVR and repair of ascending aortic aneurysm. 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 Cgonitively intact. Neurology will consult today. Patient is normally independent and lives with her who is a PT. Therapies have been ordered. Case Management will follow for discharge planning. Current CM Discharge plan: TBD Date Signed: 05/03/2018 09:41 AM Electronically Signed By:Taylor Randall RN
[2018-05-03] MEDS ORDERED: METOPROLOL TARTRATE 25 MG TAB PO SCH (10:00)
[2018-05-03] MEDS: ASPIRIN EC 81 MG TAB PO SCH (11:10)
[2018-05-03] MEDS: PANTOPRAZOLE SODIUM 40 MG TAB PO SCH (11:17)
[2018-05-03] MEDS: MUPIROCIN 2% 22 GM OINT NS SCH ×2 (11:17→21:12)
--- NOTE | 2018-05-03 11:18 | ASMTCMCOM ---
CM Note CM Note Notes: PT has recommended inpatient rehab and in discussion with the patient's , they are interested. Sent a referral to [facility] inpatient rehab program. Patient's David states if their insurance does not cover the cost and patient needs SNF, they would like to see if they can get admit to [facility]. David's parents were both residents of [facility] and the patient knows the staff there. CM will follow. Date Signed: 05/03/2018 11:17 AM Electronically Signed By:Cary Wilcox LCSW
--- NOTE | 2018-05-03 13:35 | POSTANESTH ---
Post Anesthetic Evaluation Cardiovascular Status: Normal, Stable Respiratory Status: Normal, Stable Level of Consciousness/Mental Status: Can Participate in Eval Pain Control: Adequate, Prn Tx Ordered Nausea/Vomiting Control: Adequate, Prn Tx Ordered Complications Possibly Related to Anesthesia: None Noted (patient with post op CVA involving LYNSEY and LE extremity both sensory and motor. Per family it started 3-4 hours post op, but this is unclear.)
--- NOTE | 2018-05-03 13:36 | PDINTPN ---
Distribution Coordinator Progress Note Assessment/Plan: Assessment: S/P AVR/aortic root repair Left hemiparesis: CTH unremarkable except for cerebellar heterogeneity of uncertain significance. Occurred post-op ? embolic events vs migraine. Anemia: Acute on chronic (thalassemia minor). Plan: D/W neurology. CT angio head/neck now. Transfuse PRBCs. Goal SBP <140 per CTS. 40 min CC time addressing acute neurologic changes, ? CVA, coordinating care with CTS, neurology. 05/03/18 13:42 Subjective: Reports some migraine visual aura, increased over baseline Objective: Vital Signs Temp Pulse Resp BP Pulse Ox 37.2 C 82 19 136/80 H 100 05/03/18 12:00 05/03/18 12:00 05/03/18 12:00 05/03/18 12:00 05/03/18 12:00 Laboratory Results 05/03/18 04:10 05/03/18 04:10 05/02/18 05/03/18 05/04/18 05:59 05:59 05:59 Intake Total 2222 100 Output Total 2875 55 Balance -653 45 CTH: heterogeneity R>L cerebellar peduncles. Images reviewed by me. Physical Exam - Physical Exam General Appearance: alert, no apparent distress EENT: normal ENT inspection Neck: normal inspection Respiratory: lungs clear Cardiac/Chest: regular rate, rhythm, No edema Abdomen: normal bowel sounds, non-tender Skin: normal color, warm/dry Extremities: normal inspection Neuro/Psych: alert, normal mood/affect, motor weakness (left arm and leg) ICD10 Worksheet Patient Problems: Problems Problem Status Onset Acute blood loss anemia Acute S/P aortic valve replacement with bioprosthetic valve Acute ~05/02/18 s/p ascending aortic resection Acute ~05/02/18 Aortic stenosis due to bicuspid aortic valve Chronic Ascending aorta dilation Chronic PSVT (paroxysmal supraventricular tachycardia) Chronic
[2018-05-03] MEDS ORDERED: IOPAMIDOL (ISOVUE 370) 100 ML BTL IV ONE ×2 (15:52)
--- NOTE | 2018-05-03 16:59 | ASMTCMCOM ---
CM Note CM Note Notes: Received a vm from Sherry at [facility]. Sherry will initiate the insurance authorization with [facility] so that hopefully, if patient is appropriate on Sunday, will be able to d/c. Per last CM note, patient and randall would like [facility] as a back-up. Since typically does not accept Commercial Insurance plans, another plan may be warranted. CM will continue to follow. Plan: [facility] IPR? Date Signed: 05/03/2018 04:59 PM Electronically Signed By:Aide Persaud RN
--- NOTE | 2018-05-03 17:55 | NEUROPROG ---
Assessment: [id number] - Neurology Consult: - CC: Left arm/leg weakness - HPI: Pt with history of bicuspid aortic valve and dilated ascending aorta who had progressive aortic stenosis with chest pain and lightheadedness had aortic valve repair by Dr. Garcia on 05/02/18. After surgery pt was noted to have left arm and leg weakness concerning for stroke. Head CT on 05/03/18 showed no hemorrhage but did note abnl in cerebellum and recommended brain MRI. CTA head/ neck performed and head CTA unremarkable (neck CTA read still pending). Brain MRI scheduled for 05/04/18. I initially saw the patient on 05/04/18. Neurologic exam showed left arm and leg weakness. Pt possibly also had left sided neglect although difficult to determine. Pt also reported long-standing migraine with aura that have been very difficult to control (she sees an outpatient migraine expert to manage). She did report migraine auras were present. At this time her symptoms are most concerning for stroke so will obtain brain MRI. If no stroke seen then I would consider that she has weakness from an atypical migraine. - PMHx: PSVT, thalassemia minor, migraines, anxiety/depression, insomnia, herpes simplex - SHx: no tobacco FHx: bicuspid aortic valve - ROS: Pt denied acute fever, total vision loss, active severe chest pain, respiratory failure, total body severe rash, total bowel/bladder incontinence, psychosis, active seizures, or active bleeding - O: VS reviewed General: Alert Eyes: Fundoscopic exam not able to visualize optic disks CV: Heart RRR, no murmur, no carotid bruit Lungs: Clear to auscultation bilaterally, no rhonchi or rales Neuro: - Mental: . Oriented x person/place/date . concentration appears normal . speech fluency/comprehension normal . memory appears normal . fund of knowledge appear intact - Cranial Nerves: . II: PERRL, VFFTC . III/IV/: EOMI, no nystagmus, normal smooth pursuits, no Ptosis . V: facial sensation intact to LT . VII: face symmetric to eye closure and smile . VIII: hearing intact to conversation . IX/X: uvula raises symmetrically . XI: SCM 5/5 R strength, 0/5 in L . XII: tongue protrudes midline w/nl strength - Motor: . Tone: normal tone in all 4 extremity . Strength: right arm/leg normal strength, left arm/leg are weak but strength testing inconsistent, possibly due to patient neglect - Reflexes: B/L bic/BR/patella 06/03 - Sensory: all 4 extremity intact to light touch - Coord: no coord issues noted - Gait: deferred - Labs: 05/03/18- Na 138 - Rads: 05/03/18- Head CT: Subtle heterogeneity of the cerebellar peduncles, most prominent on the right. This may be artifact but would consider MRI evaluation. No bleed noted (I personally visualized the images on 05/03/18) 05/03/18- Head CTA: no significant problems noted 05/03/18- Neck CTA: pending read - Assessment: 1. Left sided weakness after cardiac surgery on 05/02/18: Will get brain MRI to further evaluate cause. - 2. Recent cardiac surgery on 05/02/18 - 3. History of refractory migraines: Sees migraine specialist in [place], [place] - Plan: - Brain MRI wo tomorrow - Get Neck CTA read - TTE tomorrow - Begin aspirin 325 mg qd for stroke prevention if OK with cardiac surgery - telemetry - blood pressure goal < 220/120 x 48 hours - PT/OT/Speech to determine any rehab needs Objective: Vital Signs Temp Pulse Resp BP Pulse Ox 37.2 C 85 18 140/85 H 95 05/03/18 12:00 05/03/18 17:00 05/03/18 17:00 05/03/18 17:00 05/03/18 17:00 Laboratory Results 05/03/18 04:10 05/03/18 04:10 05/02/18 05/03/18 05/04/18 05:59 05:59 05:59 Intake Total 2222 1210 Output Total 6293 355 Balance -653 855 Allergies/Adverse Reactions: No Known Allergies Allergy (Verified 04/29/18 10:44)
[2018-05-03] MEDS: ZOLPIDEM TARTRATE 5 MG TAB PO PRN (21:12)
[2018-05-03] MEDS: MAGNESIUM OXIDE 400 MG TAB PO SCH (21:12)
[2018-05-03] MEDS ORDERED: LORazepam 2 MG/ML INJ ONE (23:24)
[2018-05-03] MEDS ORDERED: LORazepam 2 MG/ML INJ IVP ONE (23:45)
[2018-05-03] MEDS ORDERED: levETIRAcetam 1000MG/NACL 100 ML IV ONE (23:45)
[2018-05-04] MEDS: ACETAMINOPHEN 325 MG TAB PO SCH ×4 (06:19→23:50)
[2018-05-04] MEDS: KETOROLAC 15 MG/1 ML SDV IVP SCH (06:36)
--- NOTE | 2018-05-04 08:03 | SOAPPROG ---
SOAP Progress Note Assessment/Plan: POD#2 s/p AVR #23 Inspiris, resection and primary repair of ascending aortic aneurysm, left atrial appendage occlusion Post-op LLE, LUE weakness, likely post-op CVA, now with x1 episode of grand mal seizure Severe BAV stenosis with enlarged ascending aorta - No inotropes required post- op. Paced immediately post-op but now NSR with occ PAC. A&V wires removed. Hold antithrombotic therapy (ASA, Coumadin). When/if appropriate, plan for 8 weeks of Coumadin. Chest tubes too high to pull. Likely post-operative CVA - includes LLE, LUE weakness and loss of sensation. No apparent cognitive deficit, aphasia, dysarthrias, or facial droop. Patient has a history of migraines w aura that have been worse in the ICU. Dr. Estevez saw patient yesterday. CTA head/neck negative. New-onset grand mal seizure treated with ativan & keppra. Repeat CT head negative. Hold BB to keep cerebral perfusion pressures elevated. Acute blood loss anemia with thrombocytopenia - 9.7/29.9 just prior to OHS. 10.5 /33.8 mid March. Transfused 2 units yesterday with appropriate response. Platelets trending down (213 pre-op, 82 today). Will check for HIT. Chronic anemia/thalassemia - acute on chronic, worsened by OHS. Postoperative respiratory insufficiency -extubated POD 0, continue C&DB, IS. On 2 L nasal cannula oxygen. Paroxysmal SVT - stable, start low-dose beta-dameon when/if appropriate. Favor keeping BP elevated for cerebral perfusion. Plan: Given patients low platelet count & active chest tube o/p - hold ASA Split chest tubes A&V wires removed today, ok for MRI for CVA w/u Check PF4 IVF @ 50 until VSS Subjective: New onset grand mal seizure around midnight. Treated with ativan and keppra. Repeat head ct negative. Somnolent/post-ictal this AM. Objective: Vital Signs Temp Pulse Resp BP Pulse Ox 37.3 C 79 21 H 105/67 95 05/04/18 04:00 05/04/18 07:00 05/04/18 07:00 05/04/18 07:00 05/04/18 07:00 Laboratory Results 05/04/18 03:42 05/04/18 03:42 05/03/18 05/04/18 05/05/18 05:59 05:59 05:59 Intake Total 2222 1410 Output Total 2875 975 Balance -653 435 General: NAD, in bed HEENT: NCAT,CVL IJ Respiratory: nasal cannula oxygen 2 L, no wheezes, crackles Cardiac: NSR, no m/r/g, no edema GI: soft,nt, nd Incisions: sternum C/D/I & stable Chest tubes: 220 cc overnight Neuro: somnolent, responds with pain (removal of A/V wires), nods appropriately when asked questions, no evidence of aphasia ICD10 Worksheet Patient Problems: Problems Problem Status Onset Acute blood loss anemia Acute S/P aortic valve replacement with bioprosthetic valve Acute ~05/02/18 s/p ascending aortic resection Acute ~05/02/18 Aortic stenosis due to bicuspid aortic valve Chronic Ascending aorta dilation Chronic PSVT (paroxysmal supraventricular tachycardia) Chronic
[2018-05-04] MEDS: levETIRAcetam 500MG/NACL 100 ML IV SCH ×2 (09:36→20:18)
[2018-05-04] MEDS: MUPIROCIN 2% 22 GM OINT NS SCH (09:37)
--- NOTE | 2018-05-04 10:38 | NEUROPROG ---
Assessment: [id number] - Neurology Consult: - CC: F/U for Left arm/leg weakness, possible seizure - Narrative Summary: Pt with history of bicuspid aortic valve and dilated ascending aorta who had progressive aortic stenosis with chest pain and lightheadedness had aortic valve repair by Dr. Garcia on 05/02/18. After surgery pt was noted to have left arm and leg weakness concerning for stroke. Head CT on 05/03/18 showed no hemorrhage but did note abnl in cerebellum and recommended brain MRI. 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 I initially saw the patient on 05/03/18. Neurologic exam showed left arm and leg weakness. Pt possibly also had left sided neglect although difficult to determine. Pt also reported long-standing migraine with aura that have been very difficult to control (she sees an outpatient migraine expert to manage). She did report migraine auras were present. At this time her symptoms are most concerning for stroke so will obtain brain MRI. If no stroke seen then I would consider that she has weakness from an atypical migraine. - HPI: F/U 05/04/18. Pt had a possible generalized seizure on the evening of 05/03/18. STAT head CT showed no acute changes. Pt placed on levetiracetam 500 mg bid for seizure prevention w/o any further seizures. Brain MRI and TTE pending. Left arm/leg weakness still present but improved. - PMHx: PSVT, thalassemia minor, migraines, anxiety/depression, insomnia, herpes simplex - SHx: no tobacco FHx: bicuspid aortic valve - ROS: Pt denied acute fever, total vision loss, active severe chest pain, respiratory failure, total body severe rash, total bowel/bladder incontinence, psychosis, active seizures, or active bleeding - Labs: 05/03/18- Na 138 - Rads: 05/03/18- Head CT: Subtle heterogeneity of the cerebellar peduncles, most prominent on the right. This may be artifact but would consider MRI evaluation. 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 Finding seems too dense for Dacron mesh or suture material and does not correlate with surgical anastomosis of the aortic graft. 2. Mild stenosis of the origin of the left common carotid artery. 3. Widely patent internal carotid arteries and vertebral arteries. No plaque, dissection, or occlusion. - Assessment: 1. Left sided weakness after cardiac surgery on 05/02/18: Will get brain MRI to further evaluate cause. - 2. Recent cardiac surgery on 05/02/18 - 3. History of refractory migraines: Sees migraine specialist in [place], [place] - 4. Possible generalized seizure on 05/03/18: Head CT showed no acute changes. Pt started on levetiracetam 500 mg bid. - Plan: - Begin levetiracetam (Keppra) 500 mg bid for seizure prevention - Brain MRI wo - TTE - Begin aspirin 325 mg qd for stroke prevention if OK with cardiac surgery - telemetry - blood pressure goal < 220/120 x 24 hours - PT/OT/Speech to determine any rehab needs Objective: Vital Signs Temp Pulse Resp BP Pulse Ox 37.4 C 80 21 H 115/73 91 L 05/04/18 08:00 05/04/18 10:00 05/04/18 10:00 05/04/18 10:00 05/04/18 10:00 Laboratory Results 05/04/18 03:42 05/03/18 05/04/18 05/05/18 05:59 05:59 05:59 Intake Total 2222 1410 Output Total 7840 975 Balance -653 435 Allergies/Adverse Reactions: No Known Allergies Allergy (Verified 04/29/18 10:44)
--- NOTE | 2018-05-04 11:01 | ECHO ---
[email or web address] [address] [address] Main: [phone] Fax: Transthoracic Echocardiogram Name: LATASHA BOWDEN MR#: [id number] Study Date: 05/04/2018 Study Time: 07:15 AM Date of : 1950 Age: 67 year(s) Height: 149.9 cm (59 in.) Weight: 48.08 kg (106 lb.) BSA: 1.41 m2 Gender: Female Examination: Echo Indication: Possible stroke following heart surgery/eval for cardiac thrombus, 23mm bioprosthetic/resection/repair ascending aorta Image Quality: Technically Difficult Contrast: Requested by: Madhav Estevez BP: 105 mmHg/67 mmHg Heart Rate: Rhythm: Indication: Possible stroke following heart surgery/eval for cardiac thrombus, 23mm bioprosthetic/resection/repair ascending aorta Procedure [employer] Leader: Gena Arriaza [facility] Reading Physician: Maycol Lawton MD Requesting Provider: Conclusions: Normal size left ventricle. Mild concentric LV hypertrophy. The ejection fraction is estimated to be 55-60 %. No regional wall motion abnormality. The aortic valve is a bioprosthesis. No prosthesis regurgitation. AV max PG is 12mmHG. AV mean PG is 6mmHG.. Mild tricuspid regurgitation is present. The aorta is normal. No pericardial effusion. No obvious source of embolism seen. Measurements: Chambers Valvular Assessment AV/MV Valvular Assessment TV/PV Normal Normal Normal Name Value Range Name Value Range Name Value Range Ao Marie (2D): 2.6 cm (1.4 cm-2.6 AV Vmax: 1.75 m/s (1 m/s-1.7 TR Vmax: 2.39 mm/s ( - ) cm) m/s) TR PGmax: 23 mmHg ( - ) IVSd (2D): 1.0 cm (0.6 cm-1.1 AV meanP mmHg ( - ) syst. PAP: 28 mmHg ( - ) cm) MV E Vmax: 0.89 m/s ( - ) LVDd (2D): 3.8 cm (3.9 cm-5.3 MV A Vmax: 0.54 m/s ( - ) cm) MV E/A: 1.65 ( - ) LVDs (2D): 2.8 cm (2.1 cm-4 cm) LVPWd (2D): 1.0 cm ( - ) LVEF (2D): 51 (>=54 %) EF Range: 55-60 % Patient: LATASHA BOWDEN Study Date: 05/04/2018 Page 1 of 2 07:15 AM Continued Measurements: Chambers Valvular Assessment AV/MV Valvular Assessment TV/PV Name Value Name Value Name Value LADs: 3.0 cm MV E' Septal: 0.07 m/s CVP (est.): 5 mmHg MV E/E' Septal: 13.70 MV E/E' Lateral: 16.70 Findings: Left Ventricle: Normal size left ventricle. Mild concentric LV hypertrophy. Normal global systolic LV function. The ejection fraction is estimated to be 55-60 %. No regional wall motion abnormality. Normal diastolic LV function. Right Ventricle: Normal size right ventricle. Left Atrium: The left atrium is normal in size. Right Atrium: The right atrium is normal in size. Mitral Valve: The mitral valve is normal in appearance and function. Trivial mitral valve regurgitation. Aortic Valve: The aortic valve is a bioprosthesis. No prosthesis regurgitation. AV max PG is 12mmHG. AV mean PG is 6mmHG.. Tricuspid Valve: The tricuspid valve is normal in appearance and function. Mild tricuspid regurgitation is present. The pulmonary artery pressure is normal. Pulmonic Valve: Pulmonary valve not well visualized. Aorta: The aorta is normal. Pericardium: No pericardial effusion. Left side pleural effusion. (No Signature Object) Patient: LATASHA BOWDEN Study Date: 05/04/2018 Page 2 of 2 07:15 AM [id number]
--- NOTE | 2018-05-04 12:00 | PDINTPN ---
Medical Record Administrator Progress Note Assessment/Plan: Assessment: S/P AVR/aortic root repair Left hemiparesis: CTH unremarkable except for cerebellar heterogeneity of uncertain significance. Occurred post-op ? embolic events vs migraine. Seizure: Generalized tonic clonic seizure 05/03/2018 p.m., quickly aborted with Ativan. No recurrence. Likely due to ischemic focus/infarct. Anemia: Acute on chronic (thalassemia minor). Hemoglobin up to 10 with transfusion Thrombocytopenia: Likely due to cardiopulmonary bypass, acute blood loss. A bit early for HIT, currently not getting any heparin products Plan: Brain MRI Continue Keppra Transfuse platelets Follow CBC Goal SBP <140 per CTS. PT/OT/speech therapy Increase activity as tolerated 05/04/18 12:05 Subjective: Feels a bit better this morning, able to walk in her room. Still feels sleepy/ lethargic. Objective: Vital Signs Temp Pulse Resp BP Pulse Ox 37.4 C 85 22 H 130/78 H 94 05/04/18 08:00 05/04/18 11:00 05/04/18 11:00 05/04/18 11:00 05/04/18 11:00 Laboratory Results 05/04/18 03:42 05/04/18 10:25 05/03/18 05/04/18 05/05/18 05:59 05:59 05:59 Intake Total 2222 1410 Output Total 2875 975 200 Balance -653 435 -200 CT head: No acute changes. Images reviewed by me. Physical Exam - Physical Exam General Appearance: No alert (Somnolent but arousable and able to answer questions) EENT: normal ENT inspection Neck: normal inspection Respiratory: lungs clear, normal breath sounds Cardiac/Chest: regular rate, rhythm, No edema Abdomen: normal bowel sounds, non-tender Skin: normal color, warm/dry Extremities: normal inspection Neuro/Psych: alert, motor weakness (Left citlali paresis) ICD10 Worksheet Patient Problems: Problems Problem Status Onset Acute blood loss anemia Acute S/P aortic valve replacement with bioprosthetic valve Acute ~05/02/18 s/p ascending aortic resection Acute ~05/02/18 Aortic stenosis due to bicuspid aortic valve Chronic Ascending aorta dilation Chronic PSVT (paroxysmal supraventricular tachycardia) Chronic
[2018-05-04] MEDS: CALCIUM CARBONATE 500 MG TAB PO SCH (13:54)
[2018-05-04] MEDS: CHOLECALCIFEROL VIT D3 2,000 UNITS TAB/CAP PO SCH (13:54)
[2018-05-04] MEDS: VITAMIN B COMPLEX 1 EA CAP/TAB PO SCH (13:55)
[2018-05-04] MEDS: MAGNESIUM OXIDE 400 MG TAB PO SCH ×2 (13:55→20:18)
[2018-05-04] MEDS: CYANO/VITAMIN B12 1000 MCG TAB PO SCH (13:55)
[2018-05-04] MEDS: SENNOSIDES/DOCUSATE SODIUM TAB PO SCH ×2 (13:55→20:17)
[2018-05-04] MEDS: traMADol 50 MG TAB PO PRN (17:55)
[2018-05-04] MEDS: ZOLPIDEM TARTRATE 5 MG TAB PO PRN (21:51)
[2018-05-05] MEDS: ACETAMINOPHEN 325 MG TAB PO SCH (05:41)
--- NOTE | 2018-05-05 07:51 | SOAPPROG ---
SOAP Progress Note Assessment/Plan: POD#3 s/p AVR #23 Inspiris, resection and primary repair of ascending aortic aneurysm, left atrial appendage occlusion Post-op CVA with LLE, LUE weakness and x1 episode of grand mal seizure Severe BAV stenosis with enlarged ascending aorta - No inotropes required post- op. Paced immediately post-op but now NSR with occ PAC. A&V wires removed. TTE with normal EF and no bioprosthetic regurgitation. Antithrombotic ppx w ASA 81 mg. Given high o/p and thrombocytopenia, repeat TTE sunday to r/o effusion. Plan for 8 weeks of Coumadin if no effusion. Post op CVA (acute mild right frontal cortical infarct on MRI) - Dr. Estevez from Neurology involved in care. Includes LLE, LUE weakness and loss of sensation. No apparent cognitive deficit, aphasia, dysarthrias, or facial droop. Patient has a history of migraines w aura that have been worse in the ICU. CTA head/ neck negative. New-onset grand mal seizure (05/03 at ~2300) treated with ativan & keppra. Repeat CT head negative. Now on daily Keppra with no recurrent episodes. Hold BB to keep cerebral perfusion pressures elevated. Strength improving. Neuro rec: ASA 325. Plan to start with 81 mg until TTE Sunday and platelets stabilize. Acute blood loss anemia with thrombocytopenia - 9.7/29.9 just prior to OHS. 10.5 /33.8 mid March. 2 units pRBC transfused 1/4. 2 platelets yesterday. PF4 sent yesterday but unlikely. Transfuse 1 unit pRBC today. Chronic anemia/thalassemia - acute on chronic, worsened by OHS. Postoperative respiratory insufficiency -extubated POD 0, continue C&DB, IS. Paroxysmal SVT - no occurrences, start low-dose beta-dameon when/if appropriate. Favor keeping BP elevated for cerebral perfusion. Plan: Remove chest tubes today Repeat CBC, CXR tomorrow Transfuse 1 pRBC today Repeat TTE Sunday Start with ASA 81 Transfer to PCU status Dispo - inpatient rehab Subjective: MRI yesterday confirms acute right frontal cortical infarct. Objective: Vital Signs Temp Pulse Resp BP Pulse Ox 36.8 C 75 15 108/69 98 05/05/18 04:00 05/05/18 06:00 05/05/18 06:00 05/05/18 04:00 05/05/18 06:00 Laboratory Results 05/05/18 05:30 05/04/18 10:25 05/04/18 05/05/18 05/06/18 05:59 05:59 05:59 Intake Total 1410 1440 Output Total 975 966 150 Balance 435 474 -150 General: NAD, in chair HEENT: NCAT,CVL IJ Respiratory: no audible wheezes, crackles Cardiac: NSR, no m/r/g, no edema GI: soft,nt, nd Incisions: sternum C/D/I & stable Chest tubes: <100 cc overnight Neuro: somnolent, nods appropriately when asked questions, no evidence of aphasia, strength improving ICD10 Worksheet Patient Problems: Problems Problem Status Onset Acute blood loss anemia Acute S/P aortic valve replacement with bioprosthetic valve Acute ~05/02/18 s/p ascending aortic resection Acute ~05/02/18 Aortic stenosis due to bicuspid aortic valve Chronic Ascending aorta dilation Chronic PSVT (paroxysmal supraventricular tachycardia) Chronic
[2018-05-05] MEDS: CYANO/VITAMIN B12 1000 MCG TAB PO SCH (07:59)
[2018-05-05] MEDS: VITAMIN B COMPLEX 1 EA CAP/TAB PO SCH (08:00)
[2018-05-05] MEDS: levETIRAcetam 500 MG TAB PO SCH ×2 (08:00→21:26)
[2018-05-05] MEDS: CALCIUM CARBONATE 500 MG TAB PO SCH (08:00)
[2018-05-05] MEDS: MAGNESIUM OXIDE 400 MG TAB PO SCH ×2 (08:00→21:26)
[2018-05-05] MEDS: SENNOSIDES/DOCUSATE SODIUM TAB PO SCH ×2 (08:00→21:26)
[2018-05-05] MEDS: CHOLECALCIFEROL VIT D3 2,000 UNITS TAB/CAP PO SCH (08:00)
[2018-05-05] MEDS ORDERED: BISACODYL 10 MG SUPP PR PRN (10:02)
[2018-05-05] MEDS: ACETAMINOPHEN 325 MG TAB PO PRN ×2 (12:04→17:59)
--- NOTE | 2018-05-05 14:25 | NEUROPROG ---
Assessment: [id number] - Neurology Consult: - CC: F/U for Left arm/leg weakness, possible seizure - Narrative Summary: Pt with history of bicuspid aortic valve and dilated ascending aorta who had progressive aortic stenosis with chest pain and lightheadedness had aortic valve repair by Dr. Garcia on 05/02/18. After surgery pt was noted to have left arm and leg weakness concerning for stroke. Head CT on 05/03/18 showed no hemorrhage but did note abnl in cerebellum and recommended brain MRI. 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 I initially saw the patient on 05/03/18. Neurologic exam showed left arm and leg weakness. Pt possibly also had left sided neglect although difficult to determine. Pt also reported long-standing migraine with aura that have been very difficult to control (she sees an outpatient migraine expert to manage). She did report migraine auras were present. At this time her symptoms are most concerning for stroke so will obtain brain MRI. If no stroke seen then I would consider that she has weakness from an atypical migraine. - F/U 05/04/18. Pt had a possible generalized seizure on the evening of 05/03/18. STAT head CT showed no acute changes. Pt placed on levetiracetam 500 mg bid for seizure prevention w/o any further seizures. Brain MRI and TTE pending. Left arm/leg weakness still present but improved. - HPI: F/U 05/05/18. TTE showed no cardiac thrombus. Brain MRI showed Mild acute right frontal cortical infarct. Stroke likely from recent cardiac surgery. Pt stable. - PMHx: PSVT, thalassemia minor, migraines, anxiety/depression, insomnia, herpes simplex - SHx: no tobacco FHx: bicuspid aortic valve - ROS: Pt denied acute fever, total vision loss, active severe chest pain, respiratory failure, total body severe rash, total bowel/bladder incontinence, psychosis, active seizures, or active bleeding - Labs: 05/03/18- Na 138 - Rads: 05/03/18- Head CT: Subtle heterogeneity of the cerebellar peduncles, most prominent on the right. This may be artifact but would consider MRI evaluation. 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 Finding seems too dense for Dacron mesh or suture material and does not correlate with surgical anastomosis of the aortic graft. 2. Mild stenosis of the origin of the left common carotid artery. 3. Widely patent internal carotid arteries and vertebral arteries. No plaque, dissection, or occlusion. 05/04/18- TTE: no cardiac thrombus reported 05/04/18- Brain MRI wo: Mild acute right frontal cortical infarct - Assessment: 1. Right frontal stroke causing Left sided weakness after cardiac surgery on 05/02: Brain MRI showed Mild acute right frontal cortical infarct. TTE and telemetry showed no stroke cause. CTA head/neck showed no vessel cause for stroke. Stroke likely from recent cardiac surgery. - 2. Recent cardiac surgery on 05/02/18 - 3. History of refractory migraines: Sees migraine specialist in [place], [place] - 4. Generalized seizure on 05/03/18: Head CT showed no acute changes but brain MRI showed right frontal stroke which is likely cause of seizure. Pt started on levetiracetam 500 mg bid. - Plan: - Continue levetiracetam (Keppra) 500 mg bid for seizure prevention - No driving and seizure precautions until seizure free for 90 days - Begin aspirin for stroke prevention if OK with cardiac surgery, OK to proceed to anticoagulation if cardiothoracic surgery feels that is needed for recent cardiac surgery - blood pressure goal < 140/90 - LDL goal < 70 (Lipid panel ordered), if < than 70 I recommend beginning statin - H1AC goal < 7.0 (H1AC ordered) - PT/OT/Speech to determine any rehab needs - Pt should f/u with her neurologist in [place], [place] after hospital discharge to determine length of Keppra dosing for seizure control - No further inpatient w/u needed, neurology will sign off - 35 min spent with patient, majority of time spent counseling on stroke and treatment plan Objective: Vital Signs Temp Pulse Resp BP Pulse Ox 37.0 C 74 18 124/67 H 97 05/05/18 12:00 05/05/18 12:00 05/05/18 12:00 05/05/18 12:00 05/05/18 12:00 Laboratory Results 05/05/18 05:30 05/04/18 10:25 05/04/18 05/05/18 05/06/18 05:59 05:59 05:59 Intake Total 1410 1440 Output Total 97 96 150 Balance 435 812 -637 Allergies/Adverse Reactions: No Known Allergies Allergy (Verified 04/29/18 10:44)
[2018-05-05] MEDS: traMADol 50 MG TAB PO PRN (15:14)
[2018-05-05] MEDS: ZOLPIDEM TARTRATE 5 MG TAB PO PRN (21:26)
--- NOTE | 2018-05-06 07:47 | SOAPPROG ---
SOAP Progress Note Assessment/Plan: POD#4: AVR #23 Inspiris, resection and primary repair of ascending aortic aneurysm, left atrial appendage occlusion Severe BAV stenosis with enlarged ascending aorta s/p AVR with bioprosthesis/ asc ao aneurysm repair - - Post-op TTE with normal EF and no bioprosthetic regurgitation - Continue ASA 81 mg for thromboprophylaxis. Plan is for repeat TTE Sunday to r /o pericardial effusion. Will decide on thromboprophylaxis with Coumadin pending TTE. Plan for 8 weeks of Coumadin if no effusion. - BB held for permissive HTN to allow for higher cerebral perfusion pressure Post op right frontal cortical infarct with subsequent seizure - LLE/LUE weakness with major improvement. - Mild residual left facial droop - Continue Keppra for seizure prophylaxis - plan for OP neurology mgmt. Will consider ASA 325 (neuro rec) following TTE. Acute on chronic post-op blood loss anemia with thrombocytopenia s/p PRBC/ platelet transfusions. - 1 additional unit of PRBC transfused yesterday with adequate response - Platelets rebounding, precautionary HIT pending h/o paroxysmal SVT - No occurrences - BB held as explained. DVT prophylaxis - SCDs only. Disposition - family opting for discharge home with OP cardiac rehab. Plan for late Sunday/Sunday. Subjective: Feels tired. L-side feels normal. Denies SOB. Objective: Vital Signs Temp Pulse Resp BP Pulse Ox 37.5 C 88 21 H 129/76 H 93 05/06/18 07:33 05/06/18 07:33 05/06/18 07:33 05/06/18 07:33 05/06/18 07:33 Laboratory Results 05/06/18 05:45 05/06/18 05:45 05/05/18 05/06/18 05/07/18 05:59 05:59 05:59 Intake Total 1440 750 Output Total 966 150 Balance 474 600 Physical Exam - Physical Exam General Appearance: WD/WN, alert, no apparent distress Neck: normal inspection Respiratory: No respiratory distress Cardiac/Chest: regular rate, rhythm Abdomen: non-tender, soft, No distended Skin: normal color, warm/dry Extremities: No pedal edema Neuro/Psych: alert, normal mood/affect, oriented x 3, facial droop (left, mild) ICD10 Worksheet Patient Problems: Problems Problem Status Onset Acute blood loss anemia Acute S/P aortic valve replacement with bioprosthetic valve Acute ~05/02/18 s/p ascending aortic resection Acute ~05/02/18 Aortic stenosis due to bicuspid aortic valve Chronic Ascending aorta dilation Chronic PSVT (paroxysmal supraventricular tachycardia) Chronic
[2018-05-06] MEDS ORDERED: POTASSIUM CL 20 MEQ TAB PO ONE ×2 (09:17→18:21)
[2018-05-06] MEDS ORDERED: LIDOCAINE 1% 5 ML SDV IF ONE (09:48)
[2018-05-06] MEDS: VITAMIN B COMPLEX 1 EA CAP/TAB PO SCH (09:51)
[2018-05-06] MEDS: MAGNESIUM OXIDE 400 MG TAB PO SCH ×2 (09:52→21:41)
[2018-05-06] MEDS: CHOLECALCIFEROL VIT D3 2,000 UNITS TAB/CAP PO SCH (09:52)
[2018-05-06] MEDS: levETIRAcetam 500 MG TAB PO SCH ×2 (09:52→21:41)
[2018-05-06] MEDS: ASPIRIN EC 81 MG TAB PO SCH (09:52)
[2018-05-06] MEDS: PANTOPRAZOLE SODIUM 40 MG TAB PO SCH (09:52)
[2018-05-06] MEDS: CALCIUM CARBONATE 500 MG TAB PO SCH (09:52)
[2018-05-06] MEDS: SENNOSIDES/DOCUSATE SODIUM TAB PO SCH ×2 (09:54→22:19)
[2018-05-06] MEDS: CYANO/VITAMIN B12 1000 MCG TAB PO SCH (10:15)
[2018-05-06] MEDS: ACETAMINOPHEN 325 MG TAB PO PRN ×2 (13:05→21:41)
[2018-05-06] MEDS ORDERED: LIDOCAINE 1% 300 MG/30 ML SDV ONE (13:54)
[2018-05-06 14:39] LABS: INR 1.11 (0.83-1.16); PROTIME(PATIENT) 14.5 SEC (12.0-15.0)
[2018-05-06] MEDS: DIPHENHYDRAMINE CREAM TP PRN ×2 (16:57→22:05)
[2018-05-06] MEDS ORDERED: ALPRAZolam 0.25 MG TAB PO ONE (20:15)
[2018-05-06] MEDS: ZOLPIDEM TARTRATE 5 MG TAB PO PRN (21:41)
[2018-05-07] MEDS: ACETAMINOPHEN 325 MG TAB PO PRN ×2 (05:44→13:31)
[2018-05-07 05:59] LABS: INR 1.15 (0.83-1.16); PROTIME(PATIENT) 14.9 SEC (12.0-15.0)
--- NOTE | 2018-05-07 08:39 | SOAPPROG ---
SOAP Progress Note Assessment/Plan: POD#5: AVR #23 Inspiris, resection and primary repair of ascending aortic aneurysm, left atrial appendage occlusion Severe BAV stenosis with enlarged ascending aorta s/p AVR with bioprosthesis/ asc ao aneurysm repair - - Post-op TTE with normal EF and no bioprosthetic regurgitation - Continue ASA 81 mg for thromboprophylaxis. Plan is for repeat TTE today to r/ o pericardial effusion. Will decide on thromboprophylaxis with Coumadin pending TTE. Plan for 8 weeks of Coumadin if no effusion. - BB held for permissive HTN to allow for higher cerebral perfusion pressure Post op right frontal cortical infarct with subsequent seizure - LLE/LUE weakness with major improvement. - Mild residual left facial droop - Continue Keppra for seizure prophylaxis - plan for OP neurology mgmt. Will consider ASA 325 (neuro rec) following TTE. Acute on chronic post-op blood loss anemia with thrombocytopenia s/p PRBC/ platelet transfusions. - Stable - HIT negative h/o paroxysmal SVT - No occurrences - BB held as explained. DVT prophylaxis - SCDs only Disposition - Plan for home today with services Subjective: Was anxious last night and Xanax helped. State LLE still feels tingly. Denies weakness. Objective: Vital Signs Temp Pulse Resp BP Pulse Ox 36.6 C 86 18 139/90 H 95 05/07/18 08:00 05/07/18 08:00 05/07/18 08:00 05/07/18 08:00 05/07/18 08:00 Laboratory Results 05/06/18 05:45 05/07/18 05:30 05/06/18 05/07/18 05/08/18 05:59 05:59 05:59 Intake Total 750 690 Output Total 150 1725 Balance 600 -1035 PT 14.9 SEC (12.0-15.0) 05/07/18 05:30 INR 1.15 (0.83-1.16) 05/07/18 05:30 Physical Exam - Physical Exam General Appearance: WD/WN, alert, no apparent distress EENT: No scleral icterus (R), No scleral icterus (L) Neck: normal inspection Respiratory: No respiratory distress Cardiac/Chest: regular rate, rhythm Abdomen: non-tender, soft, No distended Skin: normal color, warm/dry Extremities: No pedal edema Neuro/Psych: facial droop (mild, left) ICD10 Worksheet Patient Problems: Problems Problem Status Onset Acute blood loss anemia Acute S/P aortic valve replacement with bioprosthetic valve Acute ~05/02/18 s/p ascending aortic resection Acute ~05/02/18 Aortic stenosis due to bicuspid aortic valve Chronic Ascending aorta dilation Chronic PSVT (paroxysmal supraventricular tachycardia) Chronic
[2018-05-07] MEDS: CHOLECALCIFEROL VIT D3 2,000 UNITS TAB/CAP PO SCH (08:57)
[2018-05-07] MEDS: VITAMIN B COMPLEX 1 EA CAP/TAB PO SCH (08:57)
[2018-05-07] MEDS: CYANO/VITAMIN B12 1000 MCG TAB PO SCH (08:57)
[2018-05-07] MEDS: ASPIRIN EC 81 MG TAB PO SCH (08:57)
[2018-05-07] MEDS: CALCIUM CARBONATE 500 MG TAB PO SCH (08:57)
[2018-05-07] MEDS: levETIRAcetam 500 MG TAB PO SCH (08:57)
[2018-05-07] MEDS: MAGNESIUM OXIDE 400 MG TAB PO SCH (08:58)
[2018-05-07] MEDS: SENNOSIDES/DOCUSATE SODIUM TAB PO SCH (10:31)
--- NOTE | 2018-05-07 11:01 | ASMTCMCOM ---
CM Note CM Note Notes: CM discussed plan with MD and RN. CM met with pt, David, and sister who were in the room. Pt has been progressing medically and feels comfortable being discharged home with outpatient follow-up and Cardiac Rehab. Pt's is a physical therapist and says that he feels comforable helping pt after discharge. Pt reports she has multiple friends who are willing to provide meals during the healing time. No other CM needs identifed. Pt will discharge independently. Plan: Independent. Date Signed: 05/07/2018 11:00 AM Electronically Signed By:RICK Gallo
--- NOTE | 2018-05-07 11:38 | ECHO ---
[email or web address] [address] [address] Main: [phone] Fax: Transthoracic Echocardiogram Name: LATASHA BOWDEN MR#: [id number] Study Date: 05/07/2018 Study Time: 09:06 AM Date of : 1950 Age: 67 year(s) Height: 149.9 cm (59 in.) Weight: 48.53 kg (107 lb.) BSA: 1.41 m2 Gender: Female Examination: Echo Indication: Post AVR, R/O Effusion Image Quality: Contrast: Requested by: Yuval Salgado BP: 139 mmHg/90 mmHg Heart Rate: Rhythm: Normal sinus rhythm Indication: Post AVR, R/O Effusion Procedure Staff [employer]: Alok Ochoa RDCS Reading Physician: Flaca Elizabeth MD Requesting Provider: Conclusions: Normal size left ventricle. No LV hypertrophy. Normal global systolic LV function. EF is 61 %. No regional wall motion abnormality. Normal size right ventricle. Normal RV function. Trivial to mild mitral regurgitation. The aortic valve is a bioprosthesis. Normal functioning aortic valve prosthesis. Mild tricuspid regurgitation is present. The pulmonary artery pressure is normal. No pericardial effusion. There is a pleural effusion. Overall similar findings compared with 05/04/2018. Measurements: Chambers Valvular Assessment AV/MV Valvular Assessment TV/PV Normal Normal Normal Name Value Range Name Value Range Name Value Range Ao Marie (MM): 2.8 cm (2.2 cm-3.7 AV Vmax: 2.10 m/s (1 m/s-1.7 TR Vmax: 2.76 mm/s ( - ) cm) m/s) TR PGmax: 30 mmHg ( - ) IVSd (2D): 0.9 cm (0.6 cm-1.1 AV maxP mmHg ( - ) syst. PAP: 35 mmHg ( - ) cm) AV meanP mmHg ( - ) PV Vmax: 1.02 m/s (0.6 m/s-0.9 LVDd (2D): 4.2 cm (3.9 cm-5.3 LVOT Vmax: 0.92 m/s (0.7 m/s-1.1 m/s) cm) m/s) PV PGmax: 4 mmHg ( - ) LVDs (2D): 2.8 cm (2.1 cm-4 SUZANNA (Vmax): 1.2 cm2 ( - ) cm) SUZANNA (VTI): 1.2 cm ( - ) LVPWd (2D): 0.9 cm ( - ) MV E Vmax: 1.13 m/s ( - ) LVOTd 1.9 cm 1.9 cm mm MV A Vmax: 0.55 m/s ( - ) Patient: LATASHA BOWDEN Study Date: 05/07/2018 Page 1 of 2 09:06 AM LVEF (2D): 61 (>=54 %) MV E/A: 2.05 ( - ) Continued Measurements: Chambers Valvular Assessment AV/MV Valvular Assessment TV/PV Name Value Name Value Name Value LADs Lon.8 cm MV E' Septal: 0.08 m/s CVP (est.): 5 mmHg LA Area: 15.3 cm2 MV E/E' Septal: 14.70 LA Volume: 40 ml MV E/E' Lateral: 13.60 LA Volume Index: 28.4 ml/m2 Findings: Left Ventricle: Normal size left ventricle. No LV hypertrophy. Normal global systolic LV function. EF is 61 %. No regional wall motion abnormality. Normal diastolic LV function. Right Ventricle: Normal size right ventricle. Normal RV function. Left Atrium: The left atrium is normal in size. Right Atrium: The right atrium is mildly dilated. Mitral Valve: The mitral valve is normal in appearance and function. Trivial to mild mitral regurgitation. No mitral stenosis is present. Aortic Valve: The aortic valve is a bioprosthesis. Normal functioning aortic valve prosthesis. The prosthetic aortic valve is normal. No prosthesis stenosis. No prosthesis regurgitation. Tricuspid Valve: The tricuspid valve appears normal. Mild tricuspid regurgitation is present. The pulmonary artery pressure is normal. Pulmonic Valve: The pulmonic valve is normal in appearance and function. Aorta: The aorta is normal. Pericardium: No pericardial effusion. There is a pleural effusion. (No Signature Object) Patient: LATASHA BOWDEN Study Date: 05/07/2018 Page 2 of 2 09:06 AM [id number]
[2018-05-07 12:54] VITALS: BP 138/86
--- NOTE | 2018-05-07 14:09 | PDDCSUM ---
Discharge Summary Discharge Summary: ADMISSION DATE: 05/02/18 DISCHARGE DATE: 05/07/18 ADMISSION DIAGNOSES 1. Severe aortic stenosis 2. Ascending aortic aneurysm 3. Paroxysmal SVT 4. Chronic anemia DISCHARGE DIAGNOSES 1. Severe aortic stenosis 2. Ascending aortic aneurysm 3. Paroxysmal SVT 4. Acute chronic anemia with thrombocytopenia 5. Right frontal cortical infarct with subsequent seizure PROCEDURES 05/02/18 (Roe Randle): AVR with #23 Inspiris bioprosthetic valve, resection and primary repair of ascending aortic aneurysm, left atrial appendage occlusion HPI 67F with severe and ascending aortic aneurysm admitted for elective repair. HOSPITAL COURSE BY PROBLEM LIST 1. Severe aortic stenosis with ascending aortic aneurysm - stable s/p AVR/ aneurysm replacement. Coumadin with INR goal of 2-3 for 2 months for valve thromboprophylaxis. Beta-dameon held for permissive HTN to allow for higher cerebral perfusion pressure. Continue ASA 81 mg DAILY. 2. Paroxysmal SVT - no occurrences. Beta-dameon held as explained above. 3. Acute chronic anemia with thrombocytopenia - stable s/p 3U PRBCs and 2U platelets. 4. Right frontal cortical infarct with subsequent seizure - initial LLE/LUE weakness with resolution. Mild persistent left facial droop. Continue Keppra for seizure prophylaxis with plan for OP management with patient's established neurologist. CONDITION Good DISPOSITION Home, self-care PERTINENT DISCHARGE CLINICAL INFORMATION Vitals: 138/86, 83 SR, 92% on RA Exam: NAD, S1S2, No resp distress, ND, soft, NTP, LE without edema BL Labs: INR 1.15 ACTIVITY Pt was instructed on sternal precautions, activity limitations, and which problems to call [facility] with. Please see Discharge Plan in chart for specifics. DISCHARGE MEDICATIONS Continue: Valtrex PRN, ASA 81 mg DAILY, Estradiol Q90D, Vitamins/Supplements, Protonic 40 mg MWF, Amoxil 2000 mg AD, Ambien 2.5 mg QS New: Tylenol OTC PRN, Xanax 0.25 mg TID PRN, Keppra 500 mg BID, Coumadin 2.5 mg DAILY (INR goal 2-3 for 2 months), Ibuprofen 400 mg TID PRN Stop Naratriptan, Bystolic PENDING STUDIES/LABS 1. CXR prior to surgical follow-up 2. INR 05/10 at clinic FOLLOW-UP 1. Efrain Rivera, 05/14/18, 11:00 AM 2. Neurology, as directed
[2018-05-07] MEDS ORDERED: WARFARIN SODIUM 2.5 MG TAB PO SCH (16:00)
--- NOTE | 2018-05-07 16:01 | ASDISCHSUM ---
Discharge Information Plan Status:Home with No Needs Medically Cleared to Leave: Discharge Date:05/07/2018 03:54 PM CM D/C Disposition:Home, Routine, Self-Care ADT D/C Disposition:Home, Routine, Self-Care Projected Discharge Date:05/06/2018 11:00 AM Transportation at D/C:Family Discharge Delay Reason: Follow-Up Date:05/06/2018 11:00 AM Discharge Slot: Final Diagnosis: Placement Information Referral Type:[facility] Hospital Referral ID:[id number] Provider Name: Address 1: Phone Number: Address 2: Fax Number: City: Selection Factors: State: Patient Contact Information Contact Name:AFSHAN Relationship: Address:[address] City:[facility] Phone: [facility]/Zip Code:[place] [address] Email: Financial Information Financial Class:Medicare Advantage Plans Primary Plan Desc:[facility] [employer] Primary Plan Number:[id number] Secondary Plan Desc: Secondary Plan Number: Assessment Information LACE LACE Length of stay for Answers: 4-6 days current admission Acuity / Level of Answers: Yes Care: Did the patient have an inpatient admission? Comorbidities - select Answers: Congestive heart failure all that apply Coronary Artery Disease Opioid dependence / Chronic pain # of Emergency department Answers: 0 visits in the last 6 months Social determinants Answers: Mental health diagnosis (anxiety, depression, pers onality disorders, etc.) Score: 18 Date Signed: 05/07/2018 04:00 PM Electronically Signed By:RICK Gallo [facility] CM Progress Note CM Note CM Note Notes: Patient is POD #1 AVR and repair of ascending aortic aneurysm. 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 Cgonitively intact. Neurology will consult today. Patient is normally independent and lives with her who is a PT. Therapies have been ordered. Case Management will follow for discharge planning. Current CM Discharge plan: TBD Date Signed: 05/03/2018 09:41 AM Electronically Signed By:Taylor Randall RN [facility] CM Progress Note CM Note CM Note Notes: PT has recommended inpatient rehab and in discussion with the patient's , they are interested. Sent a referral to [facility] inpatient rehab program. Patient's David states if their insurance does not cover the cost and patient needs SNF, they would like to see if they can get admit to [facility]. David's parents were both residents of [facility] and the patient knows the staff there. CM will follow. Date Signed: 05/03/2018 11:17 AM Electronically Signed By:Cray Wilcox LCSW [facility] CM Progress Note CM Note CM Note Notes: Received a vm from Sherry at [facility]. Sherry will initiate the insurance authorization with [facility] so that hopefully, if patient is appropriate on Sunday, will be able to d/c. Per last CM note, patient and husbabnd would like [facility] as a back-up. Since typically does not accept Commercial Insurance plans, another plan may be warranted. CM will continue to follow. Plan: [facility] IPR? Date Signed: 05/03/2018 04:59 PM Electronically Signed By:Aide Persaud RN [facility] CM Progress Note CM Note CM Note Notes: CM discussed plan with MD and RN. CM met with pt, David, and sister who were in the room. Pt has been progressing medically and feels comfortable being discharged home with outpatient follow-up and Cardiac Rehab. Pt's is a physical therapist and says that he feels comforable helping pt after discharge. Pt reports she has multiple friends who are willing to provide meals during the healing time. No other CM needs identifed. Pt will discharge independently. Plan: Independent. Date Signed: 05/07/2018 11:00 AM Electronically Signed By:RICK Gallo Case Management Discharge Plan Note Case Management Discharge Discharge Order Complete? Answers: Yes Patient to Obtain Answers: via Family Medications Transportation Arranged Answers: Family/Friends Discharge Comments Notes: Pt following up with Cardiac rehab. Family supportive. Family to transport. Date Signed: 05/07/2018 03:59 PM Electronically Signed By:RICK Gallo Intervention Information Intervention Type:*IM-Signed Date of Service:05/07/2018 02:34 PM Patient Type:Inpatient Staff Member:Marilia Orellana Hours: Discipline: Severity: Comment:
== END 2018-05-07 15:54 | disposition home or self-care (01) | DRG 220 ==
LOC: F3N 05:45 → F2N 10:21 → F2W 05-06 12:50
PROVIDERS: ADMIT Thoracic Surgery (Cardiothoracic Vascular Surgery); ATTEND Thoracic Surgery (Cardiothoracic Vascular Surgery)
DX: Q23.0 Congenital stenosis of aortic valve (principal); I71.2 Thoracic aortic aneurysm, without rupture; I97.820 Postprocedural cerebrovascular infarction following cardiac surgery; R29.810 Facial weakness; R56.9 Unspecified convulsions; R06.89 Other abnormalities of breathing; D62 Acute posthemorrhagic anemia; D69.59 Other secondary thrombocytopenia; D56.3 Thalassemia minor; F41.8 Other specified anxiety disorders; G47.00 Insomnia, unspecified; I47.1 Supraventricular tachycardia; G43.909 Migraine, unspecified, not intractable, without status migrainosus; R91.1 Solitary pulmonary nodule
CPT/HCPCS: 82435-PO; 82565-PO; 82947-PO; 83605-ER; 84132-PO; 84295-PO; 84520-PO; 85014-ER; 86022-90; 92523-GN; 92526-GN; 92610-GN; 97110-GP; 97116-GP; 97162-GP; 97167-GO; 97530-GO; 97530-GP; 97535-GO; C1768; J0153; J0282; J0690; J1100; J1265; J1644; J1815; J1885; J1953; J2001; J2060; J2150; J2250; J2260; J2270; J2370; J2405; J2704; J2720; J2765; J2930; J3010; J3475; J3480; P9016; P9035; P9040; P9041; Q9967

== ENCOUNTER → 2018-05-13 | Outpatient (CLI) | payer OTHER | LOC: FIMAGING 10:46 | PROVIDERS: ATTEND Thoracic Surgery (Cardiothoracic Vascular Surgery) | DX: Z95.2 Presence of prosthetic heart valve (principal); Z95.828 Presence of other vascular implants and grafts ==

== ENCOUNTER → 2018-10-03 | Outpatient (CLI) | payer OTHER | LOC: BMCIMAGING 15:37 ==